=== PATIENT | female | born 1950 | race Caucasian/White ===

== ENCOUNTER 2020-02-08 16:28 | Outpatient (REF) | payer OTHER, SELFPAY | END 2020-02-08 16:29 | disposition home or self-care (01) | LOC: HO.LAB 16:28 | PROVIDERS: PCP Internal Medicine; Visit Provider Internal Medicine | DX: Z20.828 Contact with and (suspected) exposure to other viral communicable diseases (principal) | CPT/HCPCS: C9803; U0003 ==

== ENCOUNTER 2021-08-01 10:03 | Outpatient (REF) | payer OTHER, SELFPAY | END 2021-08-01 10:04 | disposition home or self-care (01) | LOC: HO.LAB 10:03 | PROVIDERS: PCP Internal Medicine; Visit Provider Hospitalist | DX: J44.9 Chronic obstructive pulmonary disease, unspecified (principal); J30.9 Allergic rhinitis, unspecified; R91.8 Other nonspecific abnormal finding of lung field; R05.9 Cough, unspecified; Z87.891 Personal history of nicotine dependence; Z01.82 Encounter for allergy testing | CPT/HCPCS: 36415; 82785; 86003 ==

== ENCOUNTER 2024-09-05 10:24 | Outpatient (AMB) | payer MEDICARE, OTHER, SELFPAY ==
[2024-09-05 10:27] VITALS: BP 109/62; PULSE 57; O2SAT 95; BMI 23.6
--- NOTE | 2024-09-05 10:27 | MHC.OFFVIS ---
Vital Signs 09/05/24 10:27 Height 5 ft 2.5 in Weight 131 lb BMI 23.6 BP 109/62 Blood Pressure Location Rt brachial Position Sitting Pulse 57 Pulse Source Pulse Oximeter Pulse Oximetry (%) 95 Oxygen Delivery Method Room Air Intake Visit Reasons: copd Allergies Penicillins Allergy (Severe, Verified 08/01/21 10:27) Swelling nitrous oxide Adverse Reaction (Severe, Verified 09/05/24 10:33) Nausea HPI Comments Details: The patient is a 74-year-old woman with a known history of COPD and pulmonary nodules. Apparently she did undergo pulmonary function studies back in 2018 demonstrating mild obstructive ventilatory defect consistent mild COPD. Patient does have a cough tends to have a chronic cough from smoking. Denies any significant shortness of breath or limitations from a respiratory status. She did undergo CT scan of the chest back in May 2021 which we personally reviewed demonstrating some mild emphysema in addition to evidence of chronic bronchitis. She did have multiple pulmonary nodules some which were new. The nodule still are subcentimeter in size. She does have some calcified nodules as well. At this point the patient is not requiring any respiratory therapy. She may benefit from a short-acting beta agonist as needed. But, the patient would like to hold off at this time. She is currently scheduled to undergo a repeat CT scan in May 2022. in addition to that will go ahead and plan to repeat her pulmonary function studies and a follow-up in the fall. 09/05/2024 the patient is here for a new patient evaluation. She was last seen about 3 years ago. Now she is being reestablished. The patient is a 74-year-old lady with underlying COPD chronic bronchitis. Seems like her symptoms are getting worse. 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 A seems to be increasing in size. It could be also affecting her respiratory capacity. The patient has been noticing increasing chest congestion. Moderate severity. In addition to shortness of breath even with minimal activity. She does have a rescue inhaler she does not feel like she is using it right and she does not feel like it is helping. On exam she does have some rhonchi. In addition to a prolonged expiratory phase. She definitely needs a maintenance inhaler at this time. We did go for brief walking oximetry the patient did desaturate down to about 92%. Explained to the patient she does not qualify for oxygen but indeed her oxygen is dropping we need to further investigate that. I did review her chest x-ray that she had in June 2024 done at [facility]. It appears that her lungs are well expanded although she has a very large heart specially the right side consistent with a massively large right atrium. She is following up in [place] with a cardiac specialists there. Will go ahead and started on Wixela. We did teach how to use the inhaler. I also provide her with spacer in order for her to use the rescue inhaler. She is still smoking pot and she needs to quit that altogether because of her underlying lung disease. The patient also had a CT scan of the chest back in 2022 done at [facility] demonstrating a 3 mm pulmonary nodules that will need follow-up at this time. Therefore she undergo PFTs and a CT scan and follow-up in 3 months. In the meantime she will start her respiratory medications. In a nasal therapy. [facility] Medical History (Updated 09/05/24 @ 20:39 by Eddy Caldwell MD) Allergic rhinitis Pulmonary nodules Cough COPD (chronic obstructive pulmonary disease) Social History Patient Tobacco Use Status: Former Tobacco user Tobacco use type: Cigarette Years Smoked: 18 years Review of Systems Const Denies fatigue and Denies fever(s) Eyes Denies change in vision ENT Denies change in voice Card Denies chest pain and Reports dyspnea on exertion Resp Reports chest congestion, Reports cough, Reports dyspnea on exertion and Reports wheezing GI Reports no additional complaints Musc Reports no additional complaints Skin/Breast Denies rash Neuro Reports no additional complaints Endo Denies fatigue Aller/Immun Reports wheezing Physical Exam Vital Signs: Last Vital Signs Pulse 57 09/05/24 10:27 BP 109/62 09/05/24 10:27 Pulse Ox 95 09/05/24 10:27 Oxygen Delivery Method Room Air 09/05/24 10:27 BMI result Body Mass Index 23.6 Const General: alert Neck Neck: Yes normal visual inspection, Yes full ROM and Yes no lymphadenopathy Chest Chest palpation & inspection: normal inspection of the chest Resp Effort & Inspection: normal respiratory effort and prolonged expiratory phase Auscultation: rhonchi and diminished lung sounds Cardio Rate: regular rate Rhythm: regular rhythm Heart sounds: S1 normal heart sound present and S2 normal heart sound present GI Palpation (GI): Soft to palpation and nontender Auscultation: normal bowel sounds Skin General skin exam: rashes and/or lesions noted Assessment & Plan Assessment & Plan (1) Pulmonary nodules: Code(s): R91.8 - Other nonspecific abnormal finding of lung field Category: Medical (2) COPD (chronic obstructive pulmonary disease): Code(s): J44.9 - Chronic obstructive pulmonary disease, unspecified Category: Medical Qualifiers: COPD type: chronic bronchitis Chronic bronchitis type: mixed simple and mucopurulent Qualified Code(s): J41.8 - Mixed simple and mucopurulent chronic bronchitis (3) Cough: Code(s): R05.9 - Cough, unspecified Category: Medical Qualifiers: Cough type: chronic Qualified Code(s): R05.3 - Chronic cough Plan RASHAD as needed with a spacer start Wixela daily Fluticasone nasal spray CT chest PFTs F/U 3-4 months the Orders: Orders CT chest wo IV con Today R91.8 - Other nonspecific abnormal finding of lung field PFT pulmonary function test Today R91.8 - Other nonspecific abnormal finding of lung field Medications: New fluticasone propion-salmeterol 250-50 mcg/dose (Wixela Inhub) 1 inh inhalation Q12H 60 ea 11RF 30 days fluticasone propionate 50 mcg/actuation 2 sprays intranasal DAILY 15.8 mL 11RF 30 days J31.0 - Chronic rhinitis Coding Level of Care Code New Pt Level 4 (34371) Diagnoses Pulmonary nodules R91.8 Mixed simple and mucopurulent chronic bronchitis J41.8 COPD type: chronic bronchitis Chronic bronchitis type: mixed simple and mucopurulent Chronic cough R05.3 Cough type: chronic Time Spent (min) 35
--- OUTSIDE RECORDS SUMMARY | 2024-09-05 11:32 | XMS_ITS | Clinical Summary ---
Author Organization [facility] Address [address] [place] [address] Care Team Providers Care Coiler Operator Name Role Phone John Carr MD Primary Care Provider [phone] Allergies Active Allergy Reactions Criticality Noted Date Comments Penicillins 12/01/2016 Medications Medication Sig Dispensed Refills Start Date End Date Status glipiZIDE (GLUCOTROL XL) ER 24 hr tablet 10 mg Take 10 mg by mouth daily. 0 Active metFORMIN (GLUCOPHAGE) tablet 500 mg Take 500 mg by mouth 2 (two) times a day with meals. 0 Active fenofibrate (TRIGLIDE) 160 MG tablet Take 160 mg by mouth daily. 0 Active simvastatin (ZOCOR) tablet 40 mg Take 40 mg by mouth every night at bedtime. 0 Active methylphenidate (CONCERTA) 54 MG CR tablet Take 54 mg by mouth every morning. 0 Active buPROPion (WELLBUTRIN XL) 150 MG 24 hr tablet Take 150 mg by mouth daily. 0 Active HYDROXYCHLOROQUINE SULFATE PO Take by mouth. 0 Active lisinopril (PRINIVIL,ZESTRIL) tablet 10 mg Take 10 mg by mouth daily. 0 Active omeprazole (PRILOSEC) 20 MG capsule Take 20 mg by mouth daily. 0 Active Magnesium Oxide 400 (241.3 MG) MG TABS tablet Take 400 mg by mouth 2 (two) times a day. 0 Active cholecalciferol (VITAMIN D3) 1000 UNITS tablet Take 1,000 Units by mouth daily. 0 Active insulin glargine (LANTUS) injection 100 units/mL Inject 14 Units under the skin every night at bedtime. 0 Active ondansetron (ZOFRAN-ODT) 4 MG disintegrating tablet Take by mouth. 0 Active atenolol (TENORMIN) tablet 50 mg Take 50 mg by mouth 2 (two) times a day. 0 Active CALCIUM PO Take by mouth. 0 Active vitamin B-12 (CYANOCOBALAMIN) 100 MCG tablet Take 50 mcg by mouth daily. 0 Active amLODIPine (NORVASC) tablet 5 mg Take 5 mg by mouth daily. 0 Active apixaban (ELIQUIS) 5 MG TABS tablet Take 5 mg by mouth every 12 (twelve) hours. 0 Active Active Problems Problem Noted Date Diagnosed Date Essential thrombocytosis 07/29/2022 History of cellulitis 07/29/2022 Family History Medical History Relation Name Comments Stroke Brother Hypertension Father Stroke Father Diabetes Mother Heart disease Mother Hypertension Mother Relation Name Status Comments Brother Father Mother Social History Tobacco Use Types Packs/Day Years Used Date Smoking Tobacco: Former Smokeless Tobacco: Never Alcohol Use Standard Drinks/Week Comments No 0 (1 standard drink = 0.6 oz pur e alcohol) Sex and Gender Information Value Date Recorded Sex Assigned at Not on file Gender Identity Not on file Sexual Orientation Not on file Job Start Date Occupation Industry Not on file Not on file Not on file Last Filed Vital Signs Vital Sign Reading Time Taken Comments Blood Pressure 142/68 07/29/2022 3:15 PM EDT Pulse 58 07/29/2022 3:15 PM EDT Temperature 37.1 C (98.7 F) 07/29/2022 3:15 PM EDT Respiratory Rate - - Oxygen Saturation 100% 07/29/2022 3:15 PM EDT Inhaled Oxygen Concentration - - Weight 61.1 kg (134 lb 9.6 oz) 07/29/2022 3:15 P M EDT Height 156.8 cm (5' 1.75 ) 07/29/2022 3:15 PM ED T Body Mass Index 24.82 07/29/2022 3:15 PM EDT Plan of Treatment Health Maintenance Due Date Last Done Comments Hepatitis C Screening 1950 COVID-19 Vaccine (#1) 1957 Pneumococcal Vaccine (1 of 2 - PCV) 1958 Depression Screening 1964 Preventative Health Evaluation 1970 DTap / Tdap / Td (1 - Tdap) 08/03/1971 Shingrix-Zoster Vaccine (1 of 2) 08/03/1971 Colon Cancer Screening (Colonoscopy) 1997 Breast Cancer Screening (Mammogram) 2002 Fall Risk Assessment 2017 Osteoporosis Screening (DEXA Scan) 2017 Influenza Vaccine (Season Ended) 2024 12/09/19 16 RSV Adult > 60+ Yrs or Pregn ant (1 - 1-dose 75+ series) 08/03/2027 Hepatitis B Vaccines Aged Out No long er eligible based on patient's age to complete this topic RSV Ped < 20 months Aged Out No longe r eligible based on patient's age to complete this topic Care Teams Coiler Operator Relationship Specialty Start Date End Date John Carr MD PCP - General Internal Medicine 11/17/16
--- OUTSIDE RECORDS SUMMARY | 2024-09-05 11:32 | XMS_ITS | Patient Health Record ---
Author Organization [facility] Address [address] [facility] [address] [place] [address] Support Name Relationship Address Phone Disha Ibarra Guarantor Unknown [phone] Allergies Allergen (clinical drug ingredient) Drug/Non Drug Allergy documented on EMR Reaction Allergy Type Onset Date Status Penicillin Unknown Drug Allergy Active Reason For Referral No Information Medications Medication SIG (Take, Route, Frequency, Duration) Notes Start Date End Date Status Methylphenidate HCl ER 54 MG 1 tablet in the morning Orally Once a day Active Hydroxychloroquine Sulfate 2 00 MG as directed Orally Active Xarelto 20 MG 1 tablet Orally Once a day Active Losartan Potassium 100 MG 1 tablet Orall y Once a day Active metFORMIN HCl 500 MG 1 tablet with a ariane l Orally twice a day Active Atenolol 50 MG 1 tablet Orally Once a day Active amLODIPine Besylate 5 MG 1 tablet Orally Once a day Active Fenofibrate 160 MG 1 tablet Orally Once a day Active Simvastatin 40 MG 1 tablet in the evening Orally Once a day Active Vitamin B12 Active Vitamin D Active oxyCODONE HCl 5 MG 1 tablet as needed Orally bid; Duration: 7 days 05/09/2021 Active Calcium Active tiZANidine HCl 4 MG 1 tablet as needed Orally Three times a day; Duration: 7 days 05/09/2021 Active Magnesium Active Ondansetron HCl 8 MG 1 tablet as needed Orally Once a day Active buPROPion HCl ER (XL) 150 MG 1 tablet in the morning Orally Once a day Active Plan Of Treatment No Information Medical (General) History Medical History History ICD Code CHD on Xarelto DMII Hypertension
--- OUTSIDE RECORDS SUMMARY | 2024-09-05 11:32 | XMS_ITS | Clinical Summary ---
Author Organization [address] [place] [address] [place] [phone] Phone Care Team Providers Care Medical Unit Secretary Name Role Phone John Carr MD Primary Care Provider [phone] Allergies Active Allergy Reactions Criticality Noted Date Comments Nitrous Oxide 04/30/2024 Penicillins 04/30/2024 Medications CYANOCOBALAMIN, VITAMIN B-12, ORAL Take by mouth daily. Active buPROPion XL (WELLBUTRIN XL) 150 mg 24 hr tablet TAKE 1 TABLET ONCE DAILY INTHE MORNING Active OneTouch Ultra Test test strip Test glucose once daily 09/21/19 24 Active atenoloL (TENORMIN) 50 mg tablet Take 1 tablet (50 mg total) by mouth 2 (two) times a day. Active albuterol HFA (PROAIR HFA ; PROVENTIL HFA ; VENTOLIN HFA) 90 mcg/actuation inhaler 1 puff every 4 (four) hours if needed. 01/27/20 24 Active cholecalciferol (VITAMIN D-3) 25 mcg (1,000 unit) tablet Take 1 tablet (1,000 Units total) by mouth daily. Active fenofibrate (LOFIBRA) 160 mg tablet Take 1 tablet (160 mg total) by mouth 1 (one) time each day. Active hydroxychloroqu ine (PLAQUENIL) 200 mg tablet 2 tablets (400 mg total) 1 (one) time each day. Active losartan (COZAAR) 100 mg tablet Take 0.5 tablets (50 mg total) by mouth 1 (one) time each day. Active metFORMIN XR (GLUCOPHAGE-XR) 500 mg 24 hr tablet Take 1 tablet (500 mg total) by mouth 2 times daily. 03/29/19 25 Active methylphenidate 54 mg 24 hr tablet Take 1 tablet (54 mg total) by mouth 1 (one) time each day. Active Xarelto 20 mg tablet Take 1 tablet (20 mg total) by mouth 1 (one) time each day. Active simvastatin (ZOCOR) 40 mg tablet TAKE 1 TABLET ONCE DAILY ATBEDTIME Active multivit-min/ir on/FA/vit K/lut (CENTRUM SILVER WOMEN ORAL) Take 1 tablet by mouth 1 (one) time each day. Active ergocalciferol (Vitamin D2) 1,250 mcg (50,000 unit) capsule Vitamin D Active cyanocobalamin (Vitamin B-12) 1,000 mcg tablet Vitamin B12 Active traZODone (DESYREL) 50 mg tablet if needed 05/11/19 Active MAGNESIUM ORAL Take by mouth. Active omeprazole (PriLOSEC) [address] capsuleIndicati ons:Gastroesoph ageal reflux disease without esophagitis Take 1 capsule (40 mg total) by mouth 1 (one) time each day. 90 each 07/25/19 25 026 Active ondansetron (ZOFRAN) 8 mg tabletIndicatio ns:Gastroparesi s Take 1 tablet (8 mg total) by mouth 1 (one) time each day. 90 tablet 07/25/19 25 026 Active amLODIPine (NORVASC) 5 mg tablet Take 1.5 tabs daily 11 each 08/29/19 25 Active amLODIPine (NORVASC) 5 mg tablet Take 1 tablet (5 mg total) by mouth 1 (one) time each day. In addition to 2.5 mg daily for total (7.5 mg ) 90 each 08/29/19 25 Active amLODIPine (NORVASC) 2.5 mg tablet Take 1 tablet (2.5 mg total) by mouth 1 (one) time each day. In addition to 5mg for a total of (7.5 mg) 90 each 08/29/19 25 026 Active amLODIPine (NORVASC) 5 mg tablet Take 1.5 tablets (7.5 mg total) by mouth 1 (one) time each day. 135 each 1 06/27/19 25 025 Discontinued(Re order) amLODIPine (NORVASC) 5 mg tablet Take 1.5 tablets (7.5 mg total) by mouth 1 (one) time each day. 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 She has underlying pulmonary disease and will continue to follow-up with her psychiatry resident for reevaluation. She also admits that over the past several years she has become quite inactive; deconditioning may be playing a role as well and she was encouraged to increase her activity as tolerated to see if improving her endurance improves symptoms. She has several risk factors for coronary artery disease including advanced age, hypertension, hyperlipidemia, diabetes, and previous smoking history. As such, we must consider that this may be her anginal equivalent; we discussed a nuclear stress test for further evaluation of possible underlying ischemia and she is amenable to this. She does not think that she will be able to ambulate on a treadmill at and as such this will have to be a pharmacological study. Of note, when I inquired whether she had had a history of seizures, she reports that she had had 2 in the past; upon elaborating on this further, she notes that they are seizures from her heart, not her brain. She describes the events that occurred when her atrial flutter was initially diagnosed where she felt as though her body with spasm out when her heart rate was going very fast. The description of these events is not consistent with neurological seizure; she has no loss of consciousness and remembers the entire event. She does not have any apparent history of seizure disorder. We will also update an echocardiogram for reevaluation of her cardiac structure and function given her history of Ebstein's anomaly as this may be contributory as well. Orders: Nuclear stress test with myocardial perfusion; Future Transthoracic echocardiogram (TTE) complete with PRN contrast, bubble, strain, and 3D order panel; Future Dizziness 06/06/2024 Assessment & Plan (06/06/2024 4:39 PM EDT): The patient reports very brief episodes of dizziness with sensation of presyncope that have been ongoing for many years and occur quite infrequently. She reports that she is unable to check her blood pressure during these time frames as it passes so quickly; she does not feel it is due to her blood sugar as it resolves before she is able to eat anything. The cause for this remains unclear, but she declines further testing at this time; should they become more frequent or prominent, she will return to care for further evaluation. Secondary hypercoagulable state ([facility] V24) Assessment & Plan (06/06/2024 4:39 PM EDT): First degree atrioventricular block 09/04/2022 Overview (06/06/2024): First degree atrioventricular block. Service date: 10/03/2014. Author: Marissa Smith MD. Supraventricular tachycardia ([facility] V24) 09/04 Overview (06/06/2024): Supraventricular tachycardia. Service date: 01/16/2015. Author: Lisa Floyd MD. Summary: as above. Anxiety 09/04/2022 Hypertension 09/02/2022 Assessment & Plan (06/06/2024 4:39 PM EDT): Blood pressure is favorable on current medical therapies; continue atenolol, amlodipine, and losartan. She believes that she had blood work done at Dr. Carr's office recently; we have reached out to his office and attempt to obtain most recent metabolic panel and CBC. 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 I have requested that she reach out to Dr. Hightower from the adult congenital heart disease clinic with whom she typically follows for this to see when she is due for her next follow-up and she is unclear on this and she is agreeable to doing so. Her shortness of breath may be related to underlying COPD and deconditioning as she reports that she is quite inactive on a regular basis; she will also follow-up with her psychiatry resident for reevaluation of her COPD. We discussed worrisome signs or symptoms for which she should return to care or seek urgent medical attention and she verbalizes understanding of this. We will continue to readdress this once her echo has been reviewed. Orders: Transthoracic echocardiogram (TTE) complete with PRN contrast, bubble, strain, and 3D order panel; Future Paroxysmal atrial flutter ([facility]/HCC V24, CMS/HCC V28) 06/22/2022 Overview (06/06/2024): Last Assessment & Plan: The patient is now status post a ablation in 2014; EKG today revealing sinus bradycardia with first-degree AV block which has been present previously as well. She denies any palpitations or symptoms reminiscent of her atrial flutter. She did not decrease her atenolol after her last visit as was directed by Dr. Daniel, but is willing to do so now; we will have her trial atenolol 50 mg once daily and she will call us for any recurrence of palpitations or other symptoms suspicious for atrial flutter prior to her next visit. She remains anticoagulated on Xarelto 20 mg daily; we discussed the risks and benefits of continuing with anticoagulation for cardioembolic prophylaxis and she wishes to continue with the current plan. She is aware to seek emergent medical attention for any uncontrolled bleeding, signs or symptoms of GI or other internal bleeding, or for any head injury. Assessment & Plan (06/06/2024 4:39 PM EDT): The patient is now status post a ablation in 2014; EKG revealed sinus bradycardia with sinus arrhythmia and first-degree AV block, which has been present previously as well. Her heart rate is quite low in the 50s today but this has been her baseline with typical readings in the 50s to 60s. It was previously requested by both myself and Dr. Daniel that she decrease her atenolol to 50 mg once daily, but she continues to take it twice daily; we did revisit this today and she is aware of the recommendations. She denies any palpitations or other symptoms suspicious for atrial flutter and is aware to call us should these occur. She remains anticoagulated on Xarelto 20 mg daily; we discussed the risks and benefits of continuing with anticoagulation for cardioembolic prophylaxis and she wishes to continue with the current plan. She is aware to seek urgent medical attention for any uncontrolled bleeding, signs or symptoms of GI or other internal bleeding, or for any head injury. Patent foramen ovale 06/22/2022 Overview (06/06/2024): Patent foramen ovale. Service date: 01/16/2015. Author: Lisa Floyd MD. Nonrheumatic tricuspid valve regurgitation 06/04 Overview (06/06/2024): Last Assessment & Plan: Mild concentric TR noted on most recent echocardiogram 06/10/2023; the patient is previously been diagnosed with Ebstein's abnormality though the echo report from [facility] in a 2022 states that the morphology of her tricuspid valve is not typical for Ebstein's anomaly. She will continue to follow with the adult congenital heart disease clinic. We will continue to monitor this with serial imaging. Assessment & Plan (06/06/2024 4:39 PM EDT): Orders: ECG 12 lead Transthoracic echocardiogram (TTE) complete with PRN contrast, bubble, strain, and 3D order panel; Future Right atrial enlargement 06/04/2021 Overview (06/06/2024): Last Assessment & Plan: She offers no new or concerning symptoms; she has been followed by the adult congenital heart disease clinic with her last visit with Dr. iHghtower being approximately 1 year ago. Her most recent echocardiogram completed 06/10/2023 shows no new findings. She is aware of signs or symptoms for which she should return to care or seek emergent medical attention. We will continue to follow this. Assessment & Plan (06/06/2024 4:39 PM EDT): Orders: Transthoracic echocardiogram (TTE) complete with PRN contrast, bubble, strain, and 3D order panel; Future Hyperlipidemia 07/05/2016 Assessment & Plan (06/06/2024 4:39 PM EDT): No recent lipid panel on file and this is typically monitored by her PCPs office; we will attempt to obtain this from the PCPs office and readdress as needed. LDL goal for this patient who has a history of diabetes is less than 70; should she be found to have coronary artery disease, goal would be less than 55. Continue simvastatin with recommendation for PCP to readdress dosing as indicated. Orders: Nuclear stress test with myocardial perfusion; Future NSVT (nonsustained ventricul ar tachycardia) (CMS/HCC V24, CMS/HCC V28) 08/08/2015 Overview (06/06/2024): 23 beat run noted on Cardionet monitor in March 2015 in setting of congenital HD with normal perfusion on MIBI 11/23/14. Encounters Date Type Department Care Team Description 08/28/2024 Telephone [facility] [address] [place] [address] Jorge Daniel MD 08/28/2024 Telephone [facility] - [address] [place] [address] Jorge Daniel MD Med Refill 08/25/2024 Telephone [facility] - [address] [place] [address] Laure Rodriguez, COURTNEY Results 08/21/2024 1:00 PM EDT Ancillary Procedure [facility] [address] [place] [address] Nonrheumatic tricuspid valve regurgitation; Ebstein's anomaly; LINO (dyspnea on exertion); Right atrial enlargement 07/24/2024 10:10 AM EDT Office Visit Gastroenterology - [address] [facility] [address] [place] [phone] Carol Castle PA Gastroparesis (Primary Dx); Gastroesophageal reflux disease without esophagitis 06/28/2024 Telephone [facility] - [address] [place] [address] Jorge Daniel MD Possible caffiene 06/28/2024 Telephone Gastroenterology - [address] [facility] [address] [place] [address] Carol Castle PA Med Refill 06/26/2024 8:30 AM EDT Ancillary Procedure [facility] - [address] [place] [address] LINO (dyspnea on exertion); Hyperlipidemia, unspecified hyperlipidemia type 06/21/2024 Telephone [facility] - [address] [place] [address] Laure Rodriguez, BANKING MANAGER Results 06/08/[address] [facility] Cardiology [facility] - [address] [place] [address] Jorge Daniel MD return call 06/06/2024 2:40 PM EDT Office Visit [facility] Cardiology [facility] - [address] [place] [phone] Laure Rodriguez NP Ebstein's anomaly (Primary Dx); Right atrial enlargement; Nonrheumatic tricuspid valve regurgitation; Primary hypertension; Paroxysmal atrial flutter ([facility] V24, [facility] V28); Secondary hypercoagulable state ([facility] V24); LINO (dyspnea on exertion); Hyperlipidemia, unspecified hyperlipidemia type; Dizziness from Last 3 Months Surgical History Surgery Date Site/Laterality Comments CARPAL TUNNEL RELEASE PROCEDURE: MO NEUROPLASTY &/TRANSPOS MEDIAN NRV CARPAL TUNNE TUBAL LIGATION PROCEDURE: HISTORICAL TUBAL LIGATION APPENDECTOMY PROCEDURE: MO APPENDECTOMY BREAST LUMPECTOMY 02/25/2011 PROCEDURE: HISTORICAL BREAST LUMPECTOMY CATARACT EXTRACTION Left COLONOSCOPY 10/12/2022 recall 5 years Medical History Medical History Date Comments Undiagnosed cardiac murmurs DX:U ndiagnosed cardiac murmurs Adjustment disorder with dep ressed mood DX:Adjustment disorder with depressed mood Unspecified asthma(493.90) DX:Un specified asthma(493.90) Type II or unspecified type diabetes mellitus with unspecified complication, not stated as uncontrolled DX:Type II or unspecified ty pe diabetes mellitus with unspecified complication, not stated as uncontrolled Anxiety state, unspecified DX:An xiety state, unspecified Heart disease, unspecified DX:He art disease, unspecified Venereal disease, unspecified DX :Venereal disease, unspecified Chronic gastric ulcer withou t mention of hemorrhage or perforation, with obstruction DX:Chronic gastric ulcer wit hout mention of hemorrhage or perforation, with obstruction Other and unspecified noninf ectious gastroenteritis and colitis(558.9) DX:Other and unspec ified noninfectious gastroenteritis and colitis(558.9) Other specified personal his tory presenting hazards to health(V15.89) DX:Other specifie d personal history presenting hazards to health(V15.89) Breast cancer ([facility] V24, [facility] V28) 02/2011 DX:Breast cancer (HCC); COMM ENT: right Hypertension 09/02/2022 Family History Medical History Relation Name Comments Heart attack Brother 1 CABG Brother 2 Diabetes Brother 3 Diabetes Brother 4 Hypertension Brother 5 Diabetes Mother Heart attack Mother Diabetes Paternal Grandmother Relation Name Status Comments Brother 1 Brother 2 Brother 3 Brother 4 Brother 5 Brother 6 (Age 67) Brother 7 Alive Brother 8 Alive Brother 9 Alive Daughter Valeria Alive Father Maternal Grandfather Maternal Grandmother Mother Paternal Grandfather Paternal Grandmother Social History Tobacco Use Types Packs/Day Years Used Date Smoking Tobacco: Former Cigarettes Q uit: 07/20/2011 Smokeless Tobacco: Never Alcohol Use Standard Drinks/Week Comments Yes 0 (1 standard drink = 0.6 oz pur e alcohol) rare Comments Unknown Sex and Gender Information Value Date Recorded Sex Assigned at Not on file Legal Sex Female 3:44 PM EST Gender Identity Not on file Sexual Orientation Not on file Obstetrics History Last Filed Vital Signs Vital Sign Reading Time Taken Comments Blood Pressure 161/83 08/21/2024 3:01 PM EDT Pulse 52 06/06/2024 2:30 PM EDT Temperature 36.4 C (97.6 F) 04/30/2024 2:49 PM EST Respiratory Rate - - Oxygen Saturation 97% 06/06/2024 2:30 PM EDT Inhaled Oxygen Concentration - - Weight 61.2 kg (135 lb) 08/21/2024 3:01 PM EDT Height 157.5 cm (5' 2 ) 08/21/2024 3:01 PM EDT Body Mass Index 24.69 08/21/2024 3:01 PM EDT Plan of Treatment Health Maintenance Due Date Last Done Comments Breast Cancer Screening 1950 Diabetes: Annual GFR (Glomerular Filtration Rate) 1950 COVID-19 Vaccine (#1) 1957 Diabetes: Annual Foot Exam 1962 Diabetes: Annual Retina Eye Exam 1962 DTaP,Tdap,and Td Vaccines (1 - Tdap) 08/03/1971 Pneumococcal Vaccine: 50+ Years (1 of 2 - PCV) 08/03/1971 Cervical Cancer Screening: HPV 1973 RSV Immunization Adult Patients (1 - Risk 60-74 years 1-dose series) 2012 Zoster Vaccines (2 of 2) 02/07/2020 12/13/2019 Cholesterol Screening (Lipid Panel) 02/14/2022 Colorectal Cancer Screening: Colonoscopy 02/14/2022 Depression Screening 02/14/2022 Falls Risk Assessment 02/14/2022 Hepatitis C Screening 02/14/2022 Osteoporosis Screening (Bone Density Screening) 02/14/2022 Social Influencers of Health Screening 02/14/2022 Medicare Annual Wellness Visit 10/08/2023 10/07/2022 Diabetes: Blood Sugar Control Test (HGBA1C) 04/30/2024 Hypertension/CHF/CAD Annual BMP Blood Test 04/30/2024 Diabetes: Annual Urine Albumin-Creatinine Ratio (uACR) 07/19/2025 07/19/2024, 03/15/2024, 03/19/2023 Influenza Vaccine Completed 03/13/2024, , 12/25/2021, Additional history exists HIB Vaccines Aged Out No longer eligi ble based on patient's age to complete this topic HPV Vaccines Aged Out No longer eligi ble based on patient's age to complete this topic Hepatitis A Vaccines Aged Out No long er eligible based on patient's age to complete this topic Hepatitis B Vaccines Aged Out No long er eligible based on patient's age to complete this topic IPV Vaccines Aged Out No longer eligi ble based on patient's age to complete this topic MMR Vaccines Aged Out No longer eligi ble based on patient's age to complete this topic Meningococcal ACWY Vaccine Aged Out N o longer eligible based on patient's age to complete this topic Meningococcal B Vaccine Aged Out No l onger eligible based on patient's age to complete this topic RSV Immunization Patients Under 20 months Aged Out No longer eligible based on patient's age to complete this topic Varicella Vaccines Aged Out No longer eligible based on patient's age to complete this topic Procedures Procedure Name Priority Date/Time Associated Diagnosis Comments TRANSTHORACIC ECHOCARDIOGRAM (TTE) COMPLETE Routine 08/21/2024 1:40 PM EDT Nonrheumatic tricuspid valve regurgitation Ebstein's anomaly LINO (dyspnea on exertion) Right atrial enlargement NM LEXISCAN STRESS TEST W/ MYOCARDIAL PERFUSION Routine 06/26/2024 11:06 AM EDT LINO (dyspnea on exertion) Hyperlipidemia, unspecified hyperlipidemia type ECG 12-LEAD Routine 06/06/2024 2:36 PM EDT Nonrheumatic tricuspid valve regurgitation from Last 3 Months Results * (ABNORMAL) TRANSTHORACIC ECHOCARDIOGRAM (TTE) COMPLETE (08/21/2024 1:40 PM EDT) Left Atrium Minor [place] 6.1 cm CV PACS Left Atrium Major [place] 5.9 cm CV PACS LA Area Sys (A2C) 22 cm2 CV PACS LA Area Sys (A4C) 22 cm2 CV PACS LA Volume (BP) 68 mL CV PACS LA Size 4.4 cm CV PACS RA Area 55.1 cm2 CV PACS RA 2D Volume 268 mL CV PACS AV Mean Gradient 3 mmHg CV PACS Ao VTI 27.3 cm CV PACS AV Peak [place] 1.2 m/s CV PACS AV Peak Gradient 6 mmHg CV PACS AV Area Continuity Equation 2.5 cm2 CV PACS AV Area Peak Velocity 2.6 cm2 CV PACS Aortic Sinus Valsalva 3.2 cm CV PACS Ascending Aorta 3.1 cm CV PACS IVC Proximal 1.0 cm CV PACS IVSD 1.2(A) 0.6 - 0.9 cm CV PACS LVIDD 4.0 3.8 - 5.2 cm CV PACS LVIDS 2.7 2.2 - 3.5 cm CV PACS LVOT Diameter 2.1 cm CV PACS LVOT Mean [place] 0.6 m/s CV PACS LVOT Mean Grad 2 mmHg CV PACS LVOT Peak VTI 19.5 cm CV PACS LVOT Peak [place] 0.9 m/s CV PACS LVOT Peak Gradient 3 mmHg CV PACS LVPWD 1.2(A) 0.6 - 0.9 cm CV PACS MV E' Tissue Velocity Lateral 8 cm/s CV PACS MV E' Tissue Velocity Septal 6 cm/s CV PACS LVOT Area 3.5 cm2 CV PACS LVOT Stroke Volume 67 mL CV PACS MV Deceleration [place] 2.3 m/s2 CV PACS E Wave Deceleration Time 238 119 - 242 ms CV PACS MV PHT 70 ms CV PACS MV Peak A [place] Angel 0.71 m/s CV PACS MV Peak E [place] Angel 0.57 m/s CV PACS MV Mean Gradient 1 mmHg CV PACS MV Mean Gradient 1 mmHg CV PACS MV Mean Gradient 1 mmHg CV PACS MV Mean Gradient 1 mmHg CV PACS MV VTI 25.1 cm CV PACS Mitral Valve Max Velocity 0.8 m/s CV PACS MV Peak Gradient 3 mmHg CV PACS MV Area PHT 3.1 cm2 CV PACS MV Area Continuity Equation 2.7 cm2 CV PACS PV Acceleration Time 144 ms CV PACS PV Mean Gradient 1 mmHg CV PACS PV VTI 11.3 cm CV PACS PV Peak Velocity 0.6 m/s CV PACS PV Peak Gradient 1 mmHg CV PACS RV Diastolic Basal Dimension 5.5(A) 2.5 - 4.1 cm CV PACS RV S' 9 cm/s CV PACS TAPSE 25 mm CV PACS TR Peak Velocity 2.79 m/s CV PACS TR Peak Gradient 31 mmHg CV PACS E/E' Ratio Septal 10 CV PACS E/E' Ratio Averaged 8 CV PACS Relative Wall Thickness ratio 0.60 CV PACS LVOT:AV VTI Index 0.71 CV PACS FS 33 % CV PACS LV Mass 2D 165 g CV PACS MV VTI:LVOT VTI ratio 1.3 CV PACS LVOT flow 208 mL/s CV PACS AV Velocity Ratio 0.75 CV PACS E/A Ratio 0.8 CV PACS E/E' Ratio Lateral 7 CV PACS BSA 1.64 m2 CV PACS LA Volume Index (BP) 42 mL/m2 CV PACS LVIDD Index 2.47 cm/m2 CV PACS LVIDS Index 1.67 cm/m2 CV PACS LV Mass Index 2D 102(A) 44 - 88 g/m2 CV PACS LVOT Stroke Index 41 mL/m2 CV PACS LA Dimension Index 2D 2.7 cm/m2 CV PACS RA 2D Volume Index 165(A) 15 - 27 mL/m2 CV PACS YAA Index (VTI) 1.53 cm2/m2 CV PACS YAA Index (Pk Miguel Angel) 1.60 cm2/m2 CV PACS Ascending Aorta Index 1.91 cm/m2 CV PACS Right Ventricular Peak Systolic Pressure 34 mmHg CV PACS Est. RA Pressure 3 mmHg CV PACS Anatomical Region Laterality Modality Ultrasound Narrative 08/24/2024 12:11 PM EDT Normal LV size and function. Normal left atrium The right atrium is massively dilated probably due to Ebstein's anomaly with apical displacement of the tricuspid leaflets. The right ventricle is small and seems to contract normally. The IVC is small consistent with a normal CVP. There is moderate TR with normal estimated RV systolic pressures. No change from June 10, 2023. Left Ventricle Left ventricle cavity size is normal. There is mild concentric hypertrophy. Systolic function is normal with an ejection fraction of 60-65%. There are no regional LV wall motion abnormalities. Right Ventricle Right ventricle cavity is small. Systolic function is normal. Left Atrium Left atrium cavity is moderately dilated. Right Atrium Right atrium cavity is massively dilated.. This is likely due to apically displaced tricuspid leaflets and Ebstein's anomaly. IVC/SVC Inferior vena cava structure is normal. RA pressures is estimated to be 3 mmHg (IVC diameter <21 mm and decreases >50% during inspiration). Mitral Valve The leaflets are mildly thickened. There is mild annular calcification. There is trace regurgitation. There is no evidence of mitral valve stenosis. Tricuspid Valve Tricuspid valve appearance is consistent with Ebstein's anomaly. The posterior leaflet in particular is displaced to the apex. There is moderate regurgitation with an eccentric jet. There is no evidence of tricuspid valve stenosis. The right ventricular systolic pressure is normal. Aortic Valve Number of aortic valve cusps cannot be determined. The leaflets are mildly thickened. There is no regurgitation or stenosis. Pulmonic Valve The pulmonic valve was not well visualized. There is no regurgitation or stenosis. Ascending Aorta The aorta appears normal in size. Pericardium Pericardium appears normal. There is no pericardial effusion. Study Details Overall the study quality was adequate. us Laure Rodriguez NP CV ECHO PROCEDURES Fi nal Result * NM LEXISCAN STRESS TEST W/ MYOCARDIAL PERFUSION (06/26/2024 11:06 AM EDT) Exercise/injec tion duration (min) 0 CV PACS STRESS Exercise/injec tion duration (sec) 43 CV PACS STRESS Peak SBP 170 mmHg CV PACS STRESS Peak DBP 80 mmHg CV PACS STRESS Peak HR 81 bpm CV PACS STRESS Baseline HR 54 bpm CV PACS STRESS Baseline SBP 170 mmHg CV PACS STRESS Baseline DBP 80 mmHg CV PACS STRESS Estimated workload 1.0 METS CV PACS STRESS Percent HR 54 % CV PACS STRESS Rate Pressure Product 13,770.0 mmHg*bpm CV PACS STRESS BSA 1.63 m2 CV PACS STRESS Target HR 127 bpm CV PACS STRESS TID 0.98 CV PACS STRESS Nuc Stress EF 71 % CV PAC S STRESS Nuc Rest EF 74 % CV PACS STRESS Anatomical Region Laterality Modality Nuclear Medicine 06/26/2024 9:28 AM EDT 06/26/2024 10:08 AM EDT Narrative 06/26/2024 5:23 PM EDT LV perfusion is normal. No evidence of ischemia or infarct by myocardial perfusion imaging after attenuation correction. Gated SPECT imaging shows a normal LVEF calculated be 74%. The LV does not appear enlarged. The TID ratio not significantly elevated. EKG stress portion as documented below. Stress Findings A pharmacological stress test was performed using regadenoson, 0.4 mg IV over 10-15 seconds, followed by radiopharmacological injection 10 seconds post infusion. Total stress time was 0 min and 43 sec. The patient reached the end of the protocol. Reversal medication 50 mg aminophylline IVP given. Blood pressure demonstrated a normal response. Heart rate demonstrated a normal response. The patient reported dizziness and nausea during the stress test that resolved after administration of aminophylline. ECG 73 year old female with reports of dyspnea on exertion. PMH includes HTN, HLD, DM and former smoking. The ECG shows normal sinus rhythm. The ECG axis is normal. Non-specific ST abnormalities noted at baseline. There were no arrhythmias during stress. There is no significant ST abnormalities during stress. There were no arrhythmias during recovery. Nuclear Study Quality Study technique: MPI, SPECT, multi, rest and stress, 1 day. Overall image quality is good. CT attenuation correction was utilized. Increased bowel uptake artifact is present. There was no increased lung uptake of the radiopharmaceutical. No radiopharmaceutical dose was extravasated. The time from injection to rest imaging is 30 mins. The time from injection to stress imaging is 45 mins. Perfusion Defect Conclusion There is no evidence of transient ischemic dilation (TID). Stress Function Comments Stress ejection fraction is 71%. Rest Function Comments Normal regional wall motion and thickening. Resting ejection fraction was 74%. CT Findings CT was performed for attenuation correction purposes only not for diagnosis. 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 Bilateral central breast densities noted though incompletely visualized. Would correlate with prior mammography. Perfusion Comments LV perfusion is normal. No fixed or reversible defects at rest or stress Laure Rodriguez NP CV STRESS PROCEDURES Final Result * ECG 12 lead (06/06/2024 2:36 PM EDT) Ventricular Rate ECG 52 BPM GEMUSE Atrial Rate 52 BPM GEMUSE P-R Interval 226 ms GEMUSE QRS Duration 80 ms GEMUSE Q-T Interval 464 ms GEMUSE QTc 431 ms GEMUSE P Wave [place] 63 degrees GEMUSE R [place] 36 degrees GEMUSE T [place] 34 degrees GEMUSE ECG Interpretation Sinus bradycardia with marked sinus arrhythmia with 1st degree A-V block T wave abnormality, consider anterior ischemia When compared with ECG of 08/20/2023 No significant change was found Confirmed by VAN REYEZ ([id number]) on 06/06/2024 4:03:26 PM GEMUSE 06/06/2024 2:36 PM EDT 06/06/2024 4:03 PM EDT Laure Rodriguez NP ECG ORDERABLES Final Result GEMUSE from Last 3 Months Insurance MEDICARE [facility] Advance Directives Documents on File Type Date Recorded 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 Health Care Decision (hx) 08/17/2014 AD PHAM DIRECTIVE Health Care Decision (hx) 08/17/2014 AD PHAM DIRECTIVE Health Care Decision (hx) 08/17/2014 AD PHAM DIRECTIVE Health Care Decision (hx) 08/17/2014 AD PHAM DIRECTIVE Health Care Decision (hx) 08/17/2014 AD PHAM DIRECTIVE Health Care Decision (hx) 08/17/2014 AD PHAM DIRECTIVE Health Care Decision (hx) 08/17/2014 AD PHAM DIRECTIVE Health Care Decision (hx) 08/17/2014 AD PHAM DIRECTIVE Health Care Decision (hx) 08/17/2014 AD PHAM DIRECTIVE Health Care Decision (hx) 08/17/2014 AD PHAM DIRECTIVE Health Care Decision (hx) 08/17/2014 AD PHAM DIRECTIVE Health Care Decision (hx) 08/17/2014 AD PHAM DIRECTIVE Health Care Decision (hx) 08/17/2014 AD PHAM DIRECTIVE Health Care Decision (hx) 08/17/2014 AD PHAM DIRECTIVE Health Care Decision (hx) 08/17/2014 AD PHAM DIRECTIVE Health Care Decision (hx) 08/17/2014 AD PHAM DIRECTIVE Health Care Decision (hx) 08/17/2014 AD PHAM DIRECTIVE Health Care Decision (hx) 08/17/2014 AD PHAM DIRECTIVE Health Care Decision (hx) 08/14/2014 AD PHAM DIRECTIVE Health Care Decision (hx) 08/14/2014 AD PHAM DIRECTIVE Health Care Decision (hx) 08/14/2014 AD PHAM DIRECTIVE Health Care Decision (hx) 08/14/2014 AD PHAM DIRECTIVE Health Care Decision (hx) 08/14/2014 AD PHAM DIRECTIVE Health Care Decision (hx) 08/14/2014 AD PHAM DIRECTIVE Health Care Decision (hx) 08/14/2014 AD PHAM DIRECTIVE Health Care Decision (hx) 08/14/2014 AD PHAM DIRECTIVE Health Care Decision (hx) 08/14/2014 AD PHAM DIRECTIVE Health Care Decision (hx) 08/14/2014 AD PHAM DIRECTIVE Health Care Decision (hx) 08/14/2014 AD PHAM DIRECTIVE Health Care Decision (hx) 08/14/2014 AD PHAM DIRECTIVE Health Care Decision (hx) 08/14/2014 AD PHAM DIRECTIVE Health Care Decision (hx) 08/14/2014 AD PHAM DIRECTIVE Health Care Decision (hx) 08/14/2014 AD PHAM DIRECTIVE Health Care Decision (hx) 08/14/2014 AD PHAM DIRECTIVE Health Care Decision (hx) 08/14/2014 AD PHAM DIRECTIVE Health Care Decision (hx) 08/14/2014 AD PHAM DIRECTIVE Care Teams Medical Unit Secretary Relationship Specialty Start Date End Date Jhon Carr MD [address] [place], [place] [id number] PCP - General Internal Medicine 01/27/11
--- OUTSIDE RECORDS SUMMARY | 2024-09-05 11:33 | XMS_ITS | Clinical Summary ---
Author Organization [facility] Address [address] [address] Phone Care Team Providers Care Files Supervisor Name Role Phone John Carr MD Primary Care Provider + [phone] Allergies Active Allergy Reactions Criticality Noted Date Comments Nitrous Oxide Nausea And Vomiting 03/19/2023 Other Reaction(s): NAUSEOUS Penicillins Other (see comments) 07/11/2024 Medications albuterol HFA (PROVENTIL HFA;VENTOLIN HFA) 108 (90 Base) MCG/ACT inhaler 1 puff 3 Active amLODIPine (NORVASC) 5 MG tablet Take 7.5 mg by mouth in the morning. 8 06/27/19 26 Active Xarelto 20 MG tablet Take 20 mg by mouth 1 (one) time each day Active atenolol (TENORMIN) 50 MG tablet Take 50 mg by mouth in the morning and 50 mg in the evening. 8 Active buPROPion XL (WELLBUTRIN XL) 150 MG 24 hr tablet TAKE 1 TABLET ONCE DAILY INTHE MORNING Active cholecalciferol (Vitamin D-[address]) 25 MCG (1000 UT) tablet Take 1,000 Units by mouth Active cyanocobalamin (VITAMIN B-12) 100 MCG tablet Take 50 mcg by mouth 1 (one) time each day Active fenofibrate (TRIGLIDE) 160 MG tablet Take 160 mg by mouth in the morning. 9 Active metFORMIN (GLUCOPHAGE) 500 MG tablet Take 500 mg by mouth 1 (one) time each day Active hydroxychloroqui ne (PLAQUENIL) 200 MG tablet 200 mg in the morning. 8 Active losartan (COZAAR) 50 MG tablet Take 100 mg by mouth 9 Active Magnesium Oxide (DIASENSE MAGNESIUM PO) Take 800 mg by mouth in the morning and 800 mg in the evening. Active Methylphenidate HCl (methylphenidate ER) 54 MG 24 hr tablet Take 54 mg by mouth in the morning. Active Multiple Vitamin (Multivitamin Adult) tablet Take 1 tablet by mouth 1 (one) time each day Active ondansetron (ZOFRAN) 8 MG tablet TAKE 1 TABLET DAILY DIRECTED Active scopolamine (TRANSDERM-SCOP) 1 MG/3DAYS patch 72 hour if needed 5 Active simvastatin (ZOCOR) 40 MG tablet TAKE 1 TABLET ONCE DAILY ATBEDTIME 8 Active traZODone (DESYREL) 50 MG tablet if needed 5 Active sodium bicarbonate 650 MG tablet Take 0.5 tablets (325 mg total) by mouth in the morning and 0.5 tablets (325 mg total) in the evening. 90 tablet 5 11/03/19 25 Active Active Problems Problem Noted Date Diagnosed Date Stage 3a chronic kidney disease 07/11/2024 Type 2 diabetes mellitus wit h diabetic chronic kidney disease 07/11/2024 Hyperkalemia 07/11/2024 Encounters Date Type Department Care Team Description 08/04/2024 9:15 AM EDT Office Visit [facility] [address] [phone] Jorge A Lopez MD Stage 3a chronic kidney disease (HCC) (Primary Dx); Hyperkalemia; Type 2 diabetes mellitus with diabetic chronic kidney disease (HCC) 07/19/2024 Orders Only [facility] [address] [phone] Jorge A Lopez MD 07/12/2024 Orders Only [facility] [address] [phone] Jorge A Lopez MD 07/12/2024 Office Communication [facility] [address] [place] [phone] Jorge A Lopez MD 07/11/2024 10:30 AM EDT Office Visit [facility] [address] [phone] Jorge A Lopez MD Stage 3a chronic kidney disease (HCC) (Primary Dx); Type 2 diabetes mellitus with diabetic chronic kidney disease (HCC); Hyperkalemia from Last 3 Months Family History Medical History Relation Comments Stroke Father Diabetes Mother type 2 Heart disease Mother NM Heart disease Sibling 1 brother Stroke Sibling 2 brother Relation Status Comments Father Mother Sibling 1 Sibling 2 Social History Tobacco Use Types Packs/Day Years Used Date Smoking Tobacco: Never Alcohol Use Standard Drinks/Week Comments No 0 (1 standard drink = 0.6 oz pur e alcohol) Comments Unknown Sex and Gender Information Value Date Recorded Sex Assigned at Not on file Legal Sex Female 4:45 PM EST Gender Identity Not on file Sexual Orientation Not on file Last Filed Vital Signs Vital Sign Reading Time Taken Comments Blood Pressure 130/60 08/04/2024 9:04 AM EDT Pulse 55 08/04/2024 9:04 AM EDT Temperature - - Respiratory Rate - - Oxygen Saturation 97% 08/04/2024 9:04 AM EDT Inhaled Oxygen Concentration - - Weight 61.3 kg (135 lb 3.2 oz) 08/04/2024 9:04 A M EDT Height - - Body Mass Index - - Plan of Treatment Upcoming Encounters Date Type Department Care Team (Late st Contact Info) Description 01/29/2025 10:15 AM EST [facility] [address] [phone] Eugenia Mann ARNP [address] [phone] Health Maintenance Due Date Last Done Comments Breast Cancer Screening 1950 Colorectal Cancer Screening: Annual FOBT 2001 Colorectal Cancer Screening: Colonoscopy 2001 Colorectal Cancer Screening: Sigmoidoscopy 2001 Pneumococcal Vaccine: 50+ Years (2 of 2 - PPSV23, PCV20, or PCV21) 11/14/2014 09/19/2014 Diabetes: Hemoglobin A1C 04/08/2020 Diabetes: Ophthalmology Exam 04/08/2020 Diabetes: Pedal Pulse Checked 04/08/2020 Diabetes: Sensory Foot Exam 04/08/2020 Diabetes: Visual Foot Exam 04/08/2020 Influenza Vaccine (Season Ended) 2024 01/21/2023, 02/02/2018, 12/09/2015, Additional history exists Pneumococcal Vaccine: Peds (0 to 5 Years) and At-Risk Patients (6 to 49 Years) Discontinued 09/19/2014 Hepatitis B Vaccine Aged Out No longe r eligible based on patient's age to complete this topic Procedures Procedure Name Priority Date/Time Associated Diagnosis Comments PTH, INTACT Routine 07/19/2024 1:47 PM EDT URINE CULTURE Routine 07/19/2024 1:47 PM EDT MAGNESIUM Routine 07/19/2024 1:47 PM EDT POTASSIUM, HEPARIN PLASMA Routine 07/19/2024 1:47 PM EDT VITAMIN D 25 HYDROXY Routine 07/19/2024 1:47 PM EDT URINE ALBUMIN / CREATININE RATIO Routine 07/19/2024 1:47 PM EDT PROTEIN / CREATININE RATIO, URINE Routine 07/19/2024 1:47 PM EDT CBC Routine 07/19/2024 1:47 PM EDT RENAL FUNCTION PANEL Routine 07/19/2024 1:47 PM EDT URINALYSIS WITH MICROSCOPIC Routine 07/19/2024 1:47 PM EDT RESULT Routine 07/19/2024 1:47 PM EDT MICROSCOPIC EXAMINATION - DO NOT USE Routine 07/19/2024 1:47 PM EDT ALT EXT LABS Routine 07/10/2024 ALT EXT LABS Routine 06/14/2024 from Last 3 Months Results * Potassium, Plasma (07/19/2024 1:47 PM EDT) Potassium 4.8 3.5 - 5.2 mmol/L [facility] 07/19/2024 1:47 PM EDT 07/19/2024 Comment:UC Jorge A Lopez MD LAB BLOOD ORDERABLES Final Re sult [facility] [address] [place] [address] * Result (07/19/2024 1:47 PM EDT) Result Comment [facility] Comment: Mixed urogenital jimmy 10,000-25,000 colony forming units per mL 07/19/2024 1:47 PM EDT 07/19/2024 Jorge A Lopez MD LAB MICROBIOLOGY - GENERAL OR DERABLES Final Result [facility] [address], [address] [place] [address] * Microscopic Examination (07/19/2024 1:47 PM EDT) WBC, Urine None seen 0 - 5 /hpf [facility] RBC, Urine 0-2 0 - 2 /hpf [facility] Squamous Epithelial, Urine None seen 0 - 10 /hpf [facility] Casts None seen None seen /lpf [facility] Bacteria, Urine None seen None seen/Few [facility] 07/19/2024 1:47 PM EDT 07/19/2024 Jorge A Lopez MD LAB MICROBIOLOGY - GENERAL OR DERABLES Final Result Performing Organization Address City/[facility]/ZIP Co de Phone Number [facility] [address] [place] [address] * (ABNORMAL) Protein, Total, Random Urine w/Creatinine (Protein/Creat Ratio) (07/19/2024 1:47 PM EDT) Creatinine, Ur 48.3 Not Estab. mg/dL [facility] Protein, Ur 10.4 Not Estab. mg/dL [facility] Urine Protein/Creati nine Ratio 215(H) 0 - 200 mg/g creat [facility] 07/19/2024 1:47 PM EDT 07/19/2024 Jorge A Lopez MD LAB URINE ORDERABLES Final Re sult Performing Organization Address [facility]/ZIP Co de Phone Number [facility] [address] [place] [address] * Urine Albumin / Creatinine Ratio (07/19/2024 1:47 PM EDT) Albumin, Urine 3.6 Not Estab. ug/mL [facility] Albumin/Creatin ine Ratio 7 0 - 29 mg/g creat [facility] Comment: Normal: 0 - 29 Moderately increased: 30 - 300 Severely increased: >300 07/19/2024 1:47 PM EDT 07/19/2024 Jorge A Lopez MD LAB URINE ORDERABLES Final Re [facility]ult [facility] [address] [place] [address] * Vitamin D 25 Hydroxy (07/19/2024 1:47 PM EDT) Vitamin D, 25-OH, Total 35.6 30.0 - 100.0 ng/mL [facility] Comment: Vitamin D deficiency has been defined by the [place] of Medicine and an Endocrine Society practice guideline as a level of serum 25-OH vitamin D less than 20 ng/mL (1,2). The Endocrine Society went on to further define vitamin D insufficiency as a level between 21 and 29 ng/mL (2). 1. IOM ([place] of Medicine). 2010. Dietary reference intakes for calcium and D. [place]: The National Academies Press. 2. Svetlana MF, Josep MORAN, Jovon MERRILL, et al. Evaluation, treatment, and prevention of vitamin D deficiency: an Endocrine Society clinical practice guideline. JCEM. 2010; 96(7):1911-30. 07/19/2024 1:47 PM EDT 07/19/2024 Jorge A Lopez MD LAB BLOOD ORDERABLES Final Re sult [facility] [address] [place] [address] * Urinalysis with microscopic (07/19/2024 1:47 PM EDT) Specific [place], Urine 1.011 1.005 - 1.030 [facility] pH Urine 6.5 5.0 - 7.5 [facility] Color, Urine Yellow Yellow [facility] [phone] Appearance Urine Clear Clear [facility] WBC Esterase Urine Negative Negative [facility] Protein, Ur Negative Negative/Tra ce [facility] Glucose, Ur Negative Negative [facility] Ketones, Urine Negative Negative [facility] Blood Urine Negative Negative [facility] Bilirubin Urine Negative Negative [facility] Urobilinogen Urine 0.2 0.2 - 1.0 mg/dL [facility] [phone] Nitrite, Urine Negative Negative [facility] Microscopic Examination Comment [facility] [phone] Comment:Microscopic follows if indicated. Other Microsc. Observations See below: [facility] Comment:Microscopic was cm cated and was performed. 07/19/2024 1:47 PM EDT 07/19/2024 us Jorge A Lopez MD LAB URINE ORDERABLES Final Re sult [facility] [address] [place] [address] * CBC (07/19/2024 1:47 PM EDT) WBC 5.7 3.4 - 10.8 x10E3/uL [facility] RBC 4.70 3.77 - 5.28 x10E6/uL [facility] Hemoglobin 13.0 11.1 - 15.9 g/dL [facility] Hematocrit 41.0 34.0 - 46.6 % [facility] MCV 87 79 - 97 fL [facility] MCH 27.7 26.6 - 33.0 pg [facility] MCHC 31.7 31.5 - 35.7 g/dL [facility] RDW 14.0 11.7 - 15.4 % [facility] Platelets 423 150 - 450 x10E3/uL [facility] 07/19/2024 1:47 PM EDT 07/19/2024 Jorge A Lopez MD LAB BLOOD ORDERABLES Final Re sult [facility] [address] [place] [address] * Urine Culture (07/19/2024 1:47 PM EDT) Culture Result, Urine [facility] 07/19/2024 1:47 PM EDT 07/19/2024 Comment: Jorge A Lopez MD LAB URINE ORDERABLES Final Re sult Performing Organization Address [facility]/ZIP Co de Phone Number [facility] [address], [address] [place] [address] * PTH, Intact (07/19/2024 1:47 PM EDT) PTH 20 15 - 65 pg/mL [facility] 07/19/2024 1:47 PM EDT 07/19/2024 Comment: Jorge A Lopez MD LAB BLOOD ORDERABLES Final Re sult Performing Organization Address [facility]/ZIP Co de Phone Number [facility] [address] [place] [address] * Magnesium (07/19/2024 1:47 PM EDT) Magnesium 2.0 1.6 - 2.3 mg/dL [facility] 07/19/2024 1:47 PM EDT 07/19/2024 Comment:ARABELLA Jorge A Lopez MD LAB BLOOD ORDERABLES Final Re sult [facility] [address] [place] [address] * (ABNORMAL) Renal Function Panel (07/19/2024 1:47 PM EDT) Glucose 126(H) 70 - 99 mg/dL [facility] BUN 23 8 - 27 mg/dL [facility] Creatinine 0.99 0.57 - 1.00 mg/dL [facility] eGFR CKD-EPI CR 2020 61 >59 mL/min/1.7 3 [facility] BUN/Creatinine Ratio 23 12 - 28 [facility] Sodium 136 134 - 144 mmol/L [facility] Potassium 5.0 3.5 - 5.2 mmol/L [facility] Chloride 98 96 - 106 mmol/L [facility] Bicarbonate (CO2) 19(L) 20 - 29 mmol/L [facility] Calcium 10.0 8.7 - 10.3 mg/dL [facility] Albumin 4.6 3.8 - 4.8 g/dL [facility] Phosphorus 3.8 3.0 - 4.3 mg/dL [facility] 07/19/2024 1:47 PM EDT 07/19/2024 Comment: Jorge A Lopez MD LAB BLOOD ORDERABLES Final Re sult [facility] [address] [place] [address] * (ABNORMAL) ALT EXT LABS (07/10/2024) Only the most recent of2 resultswithin the time period is included. WBC 8.4 3.3 - 10.0 10*3/ML Red Blood Cell Count 4.54 Hemoglobin 12.5 12.0 - 16.0 Hematocrit 39.3 36.0 - 46.0 Platelets 432(A) 150 - 399 10*3/UL BUN 27(A) 4 - 21 mg/dL Creatinine 1.16(A) 0.50 - 1.10 mg/dL Calcium 9.7 8.7 - 10.7 mg/dL Sodium 138 137 - 147 Potassium 4.7 3.4 - 5.5 Chloride 101.0 99.0 - 108.0 eGFR Non-Afr [place] 50 07/10/2024 Historical Provider LAB BLOOD ORDERABLES Suzie l Result from Last 3 Months Insurance Medicare [facility] Care Teams Files Supervisor Relationship Specialty Start Date End Date John Carr MD [address] [place] [phone] PCP - General Internal Medicine 06/15/24
== END 2024-09-05 11:02 | disposition home or self-care (01) ==
PROVIDERS: PCP Internal Medicine; Visit Provider Hospitalist
DX: R91.8 Other nonspecific abnormal finding of lung field (principal); J41.8 Mixed simple and mucopurulent chronic bronchitis; R05.3 Chronic cough
CPT/HCPCS: 99203

== ENCOUNTER → 2024-09-05 10:24 | Outpatient (BNVA) | payer MEDICARE, OTHER, SELFPAY | PROVIDERS: PCP Internal Medicine; Visit Provider Hospitalist | DX: J41.8 Mixed simple and mucopurulent chronic bronchitis (principal); R05.3 Chronic cough; R91.8 Other nonspecific abnormal finding of lung field; Z79.51 Long term (current) use of inhaled steroids | CPT/HCPCS: 99202 ==

== ENCOUNTER 2024-11-23 09:41 | Outpatient (REF) | payer MEDICARE, OTHER, SELFPAY ==
--- NOTE | 2024-11-23 09:45 | PFT_ITS ---
Flows: FEV1: 77 % of predicted at 1.53 L FVC: 101 % of predicted at 2.60 L FEV1/FVC: 59 % Bronchodilator response: Present Volumes: Total lung capacity: 98 % of predicted at 4.54 L Residual volume: 113 % of predicted at 2.10 L Slow vital capacity: 90 % of predicted at 2.44 L Expiratory reserve volume: 62 % of predicted at 0.39 L Diffusion capacity: Mildly decreased Impression: Moderate obstructive ventilatory defect with positive bronchodilator response. Decreased diffusion capacity suggests emphysema. MTDD
[2024-11-23 10:35] VITALS: PULSE 53; O2SAT 99
--- OUTSIDE RECORDS SUMMARY | 2024-11-23 11:20 | XMS_ITS | Clinical Summary ---
Author Organization [facility] Address [address] [address] Phone Care Team Providers Care Facility Operations Manager Name Role Phone John Carr MD Primary Care Provider [phone] Allergies Active Allergy Reactions Criticality Noted Date Comments Nitrous Oxide Nausea and/or Vomiting 03/19/2023 Penicillins Angioedema 2015 Medications hydroxychloroquine (PLAQUENIL) 200 mg tablet Take 200 mg by mouth daily. Active methylphenidate (CONCERTA) 54 MG CR tablet Take 54 mg by mouth every morning. Active buPROPion (WELLBUTRIN XL) 150 MG 24 hr tablet Take 150 mg by mouth daily. Active omeprazole (PRILOSEC) 40 MG capsule Take 40 mg by mouth daily. Active cholecalciferol (VITAMIN D3) 25 MCG (1,000 unit) tablet Take 1,000 Units by mouth daily. Active fenofibrate (LOFIBRA) 160 MG tablet Take 160 mg by mouth daily. Active atenolol (TENORMIN) 50 mg tabletIndications: Atrial flutter Take 1 tablet (50 mg total) by mouth 2 (two) times a day. 180 tablet 3 05/19/19 18 Active albuterol 90 mcg/actuation inhaler Inhale into the lungs every 4 (four) hours as needed. 08/07/19 23 Active amLODIPine (NORVASC) 5 MG tablet 7.5 mg daily. Active CYANOCOBALAMIN, VITAMIN B-12, ORAL Take by mouth daily. Active losartan (COZAAR) 50 MG tablet 50 mg. Active ondansetron (ZOFRAN-ODT) 4 MG disintegrating tablet Take 8 mg by mouth daily. Active rivaroxaban (XARELTO) 20 mg Tab 1 tablet Orally Once a day Active simvastatin (ZOCOR) 40 MG tablet 1 tablet in the evening Orally Once a day Active MAGNESIUM ORAL Take by mouth. Active ONETOUCH ULTRA TEST Strp stripsIndications: Type 2 diabetes mellitus with peripheral neuropathy Test glucose once daily 100 strip 3 09/21/19 24 Active WIXELA INHUB 250-50 mcg/dose DISKUS Inhale 250 mcg/actuation of fluticasone into the lungs 2 (two) times a day. 09/06/19 25 Active fluticasone propionate (FLONASE) 50 mcg/actuation nasal spray 2 sprays by Nasal route daily. 09/06/19 25 Active scopolamine (TRANSDERM-SCOP) 1 mg over 3 days as needed. 05/11/19 25 Active metFORMIN (GLUCOPHAGE-XR) 500 MG 24 hr tabletIndications: Type 2 diabetes mellitus with peripheral neuropathy Take 1 tablet (500 mg total) by mouth daily with breakfast. 180 tablet 3 10/03/19 25 Active sodium bicarbonate 650 mg tablet Take 325 mg by mouth 2 (two) times a day. 08/05/19 25 025 Active Problems Problem Noted Date Diagnosed Date Anxiety 09/04/2022 09/04/2022 Attention deficit hyperactivity disorder (ADHD) 09/04/2022 09/04/2022 Elevated blood pressure 09/04/2022 09/05/19 23 Overview (09/04/2022): Elevated blood pressure. Service date: 05/17/2013. Author: Lisa Floyd MD. First degree atrioventricular block 09/04/2022 09/04/2022 Overview (09/04/2022): First degree atrioventricular block. Service date: 10/03/2014. Author: Marissa Smith MD. Patent foramen ovale 09/04/2022 09/04/2022 Overview (09/04/2022): Patent foramen ovale. Service date: 01/16/2015. Author: Lisa Floyd MD. Supraventricular tachycardia 09/04/2022 Overview (09/04/2022): Supraventricular tachycardia. Service date: 01/16/2015. Author: Lisa Floyd MD. Summary: as above. Dyslipidemia 09/02/2022 09/02/2022 Hypertension 09/02/2022 09/02/2022 Malignant neoplasm of breast 09/02/2022 Hyperlipidemia 07/05/2016 NSVT (nonsustained ventricular tachycardia) 04/2015 Overview (08/08/2015): 23 beat run noted on Cardionet monitor in March 2015 in setting of congenital HD with normal perfusion on MIBI 11/23/14. Assessment & Plan (06/24/2016 10:15 AM EDT): Continue on atenolol. No symptoms of syncope or presyncope. Normal perfusion on ETT. Assessment & Plan (08/08/2015 1:17 PM EDT): Will increase atenolol to 50mg BID. 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 s/p CTI 12/07/14. Some atrial tachycardia on Cardionet monitor lasting 1 hour but symptoms are much improved. On Eliquis for thromboembolic protection with CHADS of 2, CHADS- VASC of 3. Assessment & Plan (06/24/2016 10:14 AM EDT): Doing well with no symptoms of recurrent sustained arrhythmia. She will continue on her current regimen and will follow up with Dr. Byrnes as scheduled. Assessment & Plan (08/08/2015 1:19 PM EDT): Mrs. Ibarra is a 64 yo woman with atrial flutter, s/p CTI 12/07/14. She has some mild symptoms since and Cardionet monitors have failed to show anything longer than an hour. She will remain on Eliquis for now. She is scheduled to have L knee replacement on 09/23/15 and can hold Eliquis prior without the need for bridging for whatever the orthopedic folks would like. She should resume as soon as safely possible following surgery. She will have one more Cardionet and we will see her back in the fall. 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 Has been euthyroid. No compressive symptoms. Ultrasound stable in October 2022. Assessment & Plan (03/29/2024 3:59 PM EST): Longstanding, s/p multiple FNA/ultrasounds. Has been euthyroid. No compressive symptoms. Stable exam. Ultrasound stable in October 2022. Assessment & Plan (01/26/2024 3:15 PM EST): Longstanding, s/p multiple FNA/ultrasounds. Has been euthyroid. Ultrasound stable in October 2022. Assessment & Plan (09/21/2023 12:54 PM EDT): Longstanding, s/p multiple FNA/ultrasounds. Clinically & biochemically euthyroid. No compressive symptoms. Ultrasound stable in October 2022. Assessment & Plan (03/19/2023 1:52 PM EST): Clinically & biochemically euthyroid. No compressive symptoms. Exam stable. Ultrasound stable in October. Assessment & Plan (09/04/2022 10:44 AM EDT): Has been euthyroid. Exam has been stable. Will continue to monitor. Type 2 diabetes mellitus with peripheral neuropa thy Assessment & Plan (10/03/2024 2:37 PM EDT): Control appears good based on hba1c & fasting SMBG. Continue to work on eating healthy & to try to increase activity. To call or send in BG with problems with glycemic control. Up to date with [employer]/creat up to date, normal. Assessment & Plan (03/29/2024 4:01 PM EST): Control has been good but is deteriorating with increase in SMBG & HbA1c. Advised to resume metformin - to start w/ 1 tablet daily with food for a few weeks & titrate up to 1 tablet bid as tolerated. Will use extended release to see if that is better tolerated than immediate release. Continue to work on eating healthy & to try to increase activity. To call or send in BG with problems with glycemic control. Up to date with [employer]. [employer]creat up to date, normal. Foot & nail care good. Assessment & Plan (01/26/2024 3:17 PM EST): Control has been good. SMBG levels are slightly higher, with occasional readings in the mid-upper 100s, usually explainable but uncertain why high today. She has had a lot of stress recently. Last Hba1c was fine. Will repeat prior to follow up. Advised not to take metformin as needed, we will continue to monitor for now & resume if looks like needs it on an ongoing basis. Continue to work on eating healthy & keeping active. To call or send in BG with problems with glycemic control. Up to date with [employer]. [employer] up to date, normal. Assessment & Plan (09/21/2023 12:55 PM EDT): Control has been good. OK to trial d/c metformin & see how BG do given loose bowels. Continue to work on eating healthy & keeping active. To call or send in BG with problems with glycemic control. Up to date with [employer]. [employer] up to date, normal. Assessment & Plan (03/19/2023 1:54 PM EST): Control has been good. Continue to work on eating healthy & keeping active. To call or send in BG with problems with glycemic control. Up to date with ophtho. Foot & nail care good. She does have more significant neuropathy on right than noted on exam last year, not symptomatic, would be unlikely related to DM given asymmetry. Will do umalb/creat. BP under reasonable control. Assessment & Plan (09/04/2022 10:44 AM EDT): Control has been good. Will call for recent labs from PCP. Continue to work on eating healthy & keeping active. To call or send in BG with problems with glycemic control. Up to date with ophtho. Follows with podiatry. BP under reasonable control. Abnormal serum creatinine level Assessment & Plan (10/03/2024 2:38 PM EDT): Creatinine worse c/w previous. Forwarded labs to renal/PCP/cardiology. Advised to contact renal to see what they advise. Encounters Date Type Department Care Team Description 10/02/2024 3:40 PM EDT Office Visit [facility] Endocrinology [address] [place] [address] Aydee Hill MD Type 2 diabetes mellitus with peripheral neuropathy (Primary Dx); Multinodular goiter; Abnormal serum creatinine level 09/28/2024 Orders Only [facility] Diabetes Center [address] [place] [address] [place] [address] Umu Delarosa [place] Type 2 diabetes mellitus with peripheral neuropathy 09/25/2024 Orders Only [facility] [address] [place] [address] [place] [address] Umu Delarosa [place] Type 2 diabetes mellitus with peripheral neuropathy from Last 3 Months Immunizations Immunization Administration Dates Next Due Influenza High-Dose Quadrivalent Preservative Fr ee IM 12/13/2019 Influenza High-Dose Trivalent Preservative Free IM 01/21/2023 Influenza Quadrivalent Preservative Free IM 11/06 Influenza Quadrivalent w/ Preservative IM 2015 Influenza Trivalent Adjuvanted Preservative free IM 02/02/2018 Zoster recombinant 12/13/2019 Family History Medical History Relation Comments Diabetes mellitus Brother Relation Status Comments Brother Social History Tobacco Use Types Packs/Day Years Used Date Smoking Tobacco: Unknown Alcohol Use Standard Drinks/Week Comments No 0 (1 standard drink = 0.6 oz pur e alcohol) Education Answer Date Recorded Are you interested in more education? Not on franco e 07/19/2022 Are you concerned about learning? Not on file 07/19/2022 No 07/19/2022 No 07/19/2022 Digital Access Answer Date Recorded No 2022 No 2022 Reliable internet access at home? Not on file 2022 Device with a working camera? Not on file Comments Unknown Sex and Gender Information Value Date Recorded Sex Assigned at Not on file Legal Sex Female 5:55 PM EST Gender Identity Not on file Sexual Orientation Not on file Last Filed Vital Signs Vital Sign Reading Time Taken Comments Blood Pressure 116/70 10/02/2024 3:41 PM EDT Pulse 57 10/02/2024 3:41 PM EDT Temperature 36.3 C (97.3 F) 09/21/2023 10:24 AM EDT Respiratory Rate 10 09/21/2023 10:24 AM EDT Oxygen Saturation 93% 10/02/2024 3:41 PM EDT Inhaled Oxygen Concentration - - Weight 59.4 kg (131 lb) 10/02/2024 3:41 PM EDT Height 158.8 cm (5' 2.52 ) 10/02/2024 3:41 PM ED T Body Mass Index 23.56 10/02/2024 3:41 PM EDT Plan of Treatment Upcoming Encounters Date Type Department Care Team (Late st Contact Info) Description 03/29/2025 1:20 PM EST Office Visit [facility] Endocrinology [address] [place] [address] [place] [address] Aydee Hill MD [address] [place] [address] [address] [place] [address] Health Maintenance Due Date Last Done Comments Adult Td,Tdap Booster 1950 DEPRESSION SCREENING 1964 SMOKING Hx and SMOKELESS TOBACCO SCREENING 1965 HEPATITIS C SCREENING 1970 PNEUMOCOCCAL VACCINES (50+ years) (1 of 2 - PCV) 08/03/1971 MAMMOGRAM 1992 COLOGUARD 1997 COLONOSCOPY 1997 COLORECTAL CANCER SCREENING 1997 FIT TEST 1997 FOBT 1997 SIGMOIDOSCOPY 1997 VIRTUAL COLONOSCOPY 1997 RSV VACCINE (1 - Risk 60-74 years 1-dose series) 2012 OSTEOPOROSIS SCREENING INITIAL (ONE-TIME) 2017 ZOSTER VACCINES (2 of 2) 02/07/2020 12/13/2019 DIABETIC EYE EXAM 09/02/2022 HEMOGLOBIN A1C 12/01/2023 05/31/2023 INFLUENZA VACCINE (#1) 2024 , 12/13/2019, 02/02/2018, Additional history exists COVID-19 VACCINE ( - season) 2024 BLOOD PRESSURE 04/04/2025 10/02/2024 CREATININE LEVEL 09/22/2025 09/22/2024, 10/2024, 11/05/2023, Additional history exists POTASSIUM LEVEL 09/22/2025 09/22/2024, 10/2024, 05/31/2023, Additional history exists HEPATITIS A VACCINES Aged Out No long er eligible based on patient's age to complete this topic HIB VACCINES Aged Out No longer eligi ble based on patient's age to complete this topic MENINGOCOCCAL VACCINES (ACWY) Aged Out No longer eligible based on patient's age to complete this topic MENINGOCOCCAL VACCINES (B) Aged Out N o longer eligible based on patient's age to complete this topic Medical Devices Not on file Procedures Procedure Name Priority Date/Time Associated Diagnosis Comments HEMOGLOBIN A1C Routine 09/24/2024 2:39 PM EDT Type 2 diabetes mellitus with peripheral neuropathy ASPARTATE AMINOTRANSFERASE (AST) Routine 09/22/2024 1:58 PM EDT Type 2 diabetes mellitus with peripheral neuropathy BASIC METABOLIC PANEL Routine 09/22/2024 1:58 PM EDT Type 2 diabetes mellitus with peripheral neuropathy ALANINE AMINOTRANSFERASE (ALT) Routine 09/22/2024 1:57 PM EDT Type 2 diabetes mellitus with peripheral neuropathy HEMOGLOBIN A1C Routine 05/31/2023 2:31 PM EDT from Last 3 Months or Most Recently Relevant to Health Maintenance Results * Hemoglobin A1c (09/24/2024 2:39 PM EDT) Only the most recent of2 resultswithin the time period is included. Blood Aydee Hill MD LAB BLOOD ORDERABLES F inal Result Performing Organization Address [facility] Co de Phone Number [address] [address] * Aspartate aminotransferase (AST) (09/22/2024 1:58 PM EDT) Blood Aydee Hill MD LAB BLOOD ORDERABLES F inal Result Performing Organization Address [facility] Co de Phone Number [address] [address] * Basic metabolic panel (09/22/2024 1:58 PM EDT) Blood Result [facility] Aydee Hill MD LAB BLOOD ORDERABLES F inal Result Performing Organization Address [facility] Co de Phone Number [address] [address] * Alanine aminotransferase (ALT) (09/22/2024 1:57 PM EDT) Blood Result [facility] Aydee Hill MD LAB BLOOD ORDERABLES F inal Result Performing Organization Address [facility] Co de Phone Number [address] [address] from Last 3 Months or Most Recently Relevant to Health Maintenance Insurance MEDICARE PART A & B [employer] MEDICARE SUPPLEMENT MEDICARE PART A & B [facility] [employer] MEDICARE SUPPLEMENT MEDICARE PART A & B [facility] [employer] MEDICARE SUPPLEMENT MEDICARE PART A & B Member Subscriber Plan / Payer (Ef fective 2021-Present) Name:Disha Ibarra Member ID:[id number] Relation to Subscriber:Self Name:Disha Ibarra Subscriber ID:[id number] Payer ID:[id number] Group ID:Not on file Type:Medicare Address: [facility] [employer] [facility] [address] MEDICARE SUPPLEMENT MEDICARE PART A & B Member Subscriber Plan / Payer (Ef fective 2021-Present) Name:Disha Ibarra Member ID:[id number] Relation to Subscriber:Self Name:Disha Ibarra Subscriber ID:[id number] Payer ID:[id number] Group ID:Not on file Type:Medicare Address: [employer] [address] [place] [id number] [place] [address] [employer] MEDICARE SUPPLEMENT MEDICARE PART A & B [facility] MEDICARE SUPPLEMENT Care Teams Facility Operations Manager Relationship Specialty Start Date End Date John Carr MD [address] [place] [id number] PCP - General 09/05/13 Additional Source Comments The information contained in this document represents components of the legal health record. It is not the complete legal health record.[facility]
--- OUTSIDE RECORDS SUMMARY | 2024-11-23 11:20 | XMS_ITS | Encounter Summary ---
Author Organization [facility] Address [address] [facility] [address] [place] [address] Phone Care Team Providers Care Hardboard Grinder Name Role Phone John Carr MD Primary Care Provider [phone] Reason for Visit * Reason Comments Medication Refill Encounter Details Date Type Department Care Team (Late Contact Info) Description 08/21/2018 Refill [facility] [place] [address] [place] [address], [address] [place] [address] Leo Rivas NP Medication Refill Social History Tobacco Use Types Packs/Day Years Used Date Smoking Tobacco: Unknown Alcohol Use Standard Drinks/Week Comments No 0 (1 standard drink = 0.6 oz pur e alcohol) Comments Unknown Sex and Gender Information Value Date Recorded Sex Assigned at Not on file Legal Sex Female 5:55 PM EST Gender Identity Not on file Sexual Orientation Not on file documented as of this encounter Plan of Treatment Upcoming Encounters Date Type Department Care Team (Late Contact Info) Description 03/29/2025 1:20 PM EST Office Visit [facility] [address] [place] [address] Aydee Hill MD [address] [place] [phone] [email or web address] documented as of this encounter Visit Diagnoses Diagnosis Atrial flutter documented in this encounter Care Teams Hardboard Grinder Relationship Specialty Start Date End Date John Carr MD [address] [place] [phone] PCP - General 09/05/13 documented as of this encounter Additional Source Comments The information contained in this document represents components of the legal health record. It is not the complete legal health record.[facility]
--- OUTSIDE RECORDS SUMMARY | 2024-11-23 11:20 | XMS_ITS | Clinical Summary ---
Author Organization [facility] Address [address] [place] [address] Care Team Providers Care Patrol Community Service Officer Name Role Phone John Carr MD Primary Care Provider [phone] Allergies Active Allergy Reactions Criticality Noted Date [...] Osteoporosis Screening (DEXA Scan) 2017 Influenza Vaccine (#1) 2024 12/09/2015 RSV Adult > 60+ Yrs or Pregn ant (1 - 1-dose 75+ series) 08/03/2027 Hepatitis B Vaccines Aged Out No long er eligible based on patient's age to complete this topic RSV Ped < 20 months Aged Out No longe r eligible based on patient's age to complete this topic Care Teams Patrol Community Service Officer Relationship Specialty Start Date End Date John Carr MD PCP - General Internal Medicine 11/17/16
--- OUTSIDE RECORDS SUMMARY | 2024-11-23 11:20 | XMS_ITS | Encounter Summary ---
Author Organization [facility] Address [address] [facility] [address] [place] [address] Phone Care Team Providers Care Bedspread Seamer Name Role Phone John Carr MD Primary Care Provider [phone] Encounter Details Date Type Department Care Team (Latest Contact Info) Description 2015 Transcribe Orders [facility] Cardiology Division [address] [place] [address], [address] [place] [address] Marissa Smith MD [address] [place] [address] [address] [place] [address] [email or web address] Cardiac arrhythmia, unspecified cardiac arrhythmia type (Primary Dx) Social History Tobacco Use Types Packs/Day Years Used Date Smoking Tobacco: Never Assessed Comments Unknown Sex and Gender Information Value Date Recorded Sex Assigned at Not on file Legal Sex Female 5:55 PM EST Gender Identity Not on file Sexual Orientation Not on file documented as of this encounter Plan of Treatment Upcoming Encounters Date Type Department Care Team (Late st Contact Info) Description 03/29/2025 1:20 PM EST Office Visit [facility] [address] [place] [address] Aydee Hill MD [address] [place] [phone] [email or web address] Scheduled Orders Name Type Priority Associated Diagnoses Orde r Schedule ECG 12 lead ECG Routine Cardiac arrhythmia, unspecified cardiac arrhythmia type Expected: 2015, Expires: 08/01/2016 documented as of this encounter Visit Diagnoses Diagnosis Cardiac arrhythmia, unspecified cardiac arrhythmia type- Primary documented in this encounter Care Teams Bedspread Seamer Relationship Specialty Start Date End Date John Carr MD [address] [place] [address] PCP - General 09/05/13 documented as of this encounter Additional Source Comments The information contained in this document represents components of the legal health record. It is not the complete legal health record.[facility]
--- OUTSIDE RECORDS SUMMARY | 2024-11-23 11:20 | XMS_ITS | Clinical Summary ---
Author Organization [facility] Address [address] [place] [address] Phone Care Team Providers Care Bio Medical Technician Name Role Phone John Carr MD Primary Care Provider John Carr MD Unavailable John Carr MD Unavailable [phone] Héctor Hightower MD Unavailable [phone] Allergies Active Allergy Reactions Criticality Noted Date Comments Nitrous Oxide Nausea 08/25/2024 Penicillins Itching,Swelling 08/25/2024 Encounters Date Type Department Care Team Description 08/29/2024 Orders Only [facility] [address] [place] [phone] Héctor Hightower MD 08/25/2024 Orders Only [facility] [address] [place] [phone] Héctor Hightower MD Right atrial dilation (Primary Dx) 08/25/2024 Telephone [facility] Cardiology Scheduling [address] [place] [address] Héctor Hightower MD from Last 3 Months Social History Tobacco Use Types Packs/Day Years Used Date Smoking Tobacco: Never Assessed Comments Unknown Sex and Gender Information Value Date Recorded Sex Assigned at Not on file Legal Sex Female 3:01 AM EDT Gender Identity Not on file Sexual Orientation Not on file Plan of Treatment Upcoming Encounters Date Type Department Care Team (Late st Contact Info) Description 12/05/2024 5:00 PM EDT Appointment [facility] [address] [place] [address] Health Maintenance Due Date Last Done Comments HIV Screening 1950 MMR Vaccines (1 of 1 - Standard series) 1953 DTaP/Tdap/Td Vaccines (1 - Tdap) 08/03/1959 Varicella Vaccines (1 of 2 - 13+ 2-dose series) 1965 Hepatitis C Screening 1970 Influenza Vaccine (#1) 2024 , 01/21/2023, 12/13/2019, Additional history exists HIB Vaccines Aged Out No longer eligi ble based on patient's age to complete this topic HPV Vaccines (No Doses Required) Completed Hepatitis A Vaccines Aged Out No long [...] patient's age to complete this topic Meningococcal Vaccine Aged Out No magdi jena eligible based on patient's age to complete this topic Rotavirus Vaccines Aged Out No longer eligible based on patient's age to complete this topic Insurance MEDICARE [facility] MEDICARE [facility] Care Teams Bio Medical Technician Relationship Specialty Start Date End Date John Carr MD [address] [place] [address] PCP - General 04/17/19 John Carr MD [address] [place] [address] PCP - Insurance PCP 05/24/19 John Carr MD [address] [place] [address] PCP - Clinical PCP 04/17/19 Héctor Hightower MD [address] [place] [address] Tire Assembler 08/07/23
--- OUTSIDE RECORDS SUMMARY | 2024-11-23 11:20 | XMS_ITS | Patient Health Record ---
Author Organization [employer] Address [address] [facility] [address] [place] [address] Support Name Relationship Address Phone Disha Ibarra Guarantor Unknown [phone] Allergies Allergen (clinical drug ingredient) Drug/Non Drug [...]
--- OUTSIDE RECORDS SUMMARY | 2024-11-23 11:20 | XMS_ITS | Clinical Summary ---
Author Organization [address] [place] [address] [place] [phone] Phone Care Team Providers Care Elementary Ell Teacher Name Role Phone John Carr MD Primary Care Provider + [phone] Allergies Active Allergy Reactions Criticality Noted Date Comments Nitrous Oxide 04/30/2024 Penicillins 04/30/2024 Medications CYANOCOBALAMIN, VITAMIN B-12, ORAL Take by mouth daily. Active buPROPion XL (WELLBUTRIN XL) 150 mg 24 hr tablet TAKE 1 TABLET ONCE DAILY INTHE MORNING Active OneTouch Ultra Test test strip Test glucose once daily 4 Active atenoloL (TENORMIN) 50 mg tablet Take 1 tablet (50 mg total) by mouth 2 (two) times a day. Active albuterol HFA (PROAIR HFA ; PROVENTIL HFA ; VENTOLIN HFA) 90 mcg/actuation inhaler 1 puff every 4 (four) hours if needed. 4 Active cholecalciferol (VITAMIN D-3) 25 mcg (1,000 unit) tablet Take 1 tablet (1,000 Units total) by mouth daily. Active fenofibrate (LOFIBRA) 160 mg tablet Take 1 tablet (160 mg total) by mouth 1 (one) time each day. Active hydroxychloroqui ne (PLAQUENIL) 200 mg tablet 2 tablets (400 mg total) 1 (one) time each day. Active losartan (COZAAR) 100 mg tablet Take 0.5 tablets (50 mg total) by mouth 1 (one) time each day. Active metFORMIN XR (GLUCOPHAGE-XR) 500 mg 24 hr tablet Take 1 tablet (500 mg total) by mouth 2 times daily. 5 Active methylphenidate 54 mg 24 hr tablet Take 1 tablet (54 mg total) by mouth 1 (one) time each day. Active Xarelto 20 mg tablet Take 1 tablet (20 mg total) by mouth 1 (one) time each day. Active simvastatin (ZOCOR) 40 mg tablet TAKE 1 TABLET ONCE DAILY ATBEDTIME Active multivit-min/iro n/FA/vit K/lut (CENTRUM SILVER WOMEN ORAL) Take 1 tablet by mouth 1 (one) time each day. Active ergocalciferol (Vitamin D2) 1,250 mcg (50,000 unit) capsule Vitamin D Active cyanocobalamin (Vitamin B-12) 1,000 mcg tablet Vitamin B12 A ctive traZODone (DESYREL) 50 mg tablet if needed 5 Active MAGNESIUM ORAL Take by mouth. Active omeprazole (PriLOSEC) [address] capsuleIndicatio ns:Gastroesophag eal reflux disease without esophagitis Take 1 capsule (40 mg total) by mouth 1 (one) time each day. 90 each 5 07/25/19 26 Active ondansetron (ZOFRAN) 8 mg tabletIndication s:Gastroparesis Take 1 tablet (8 mg total) by mouth 1 (one) time each day. 90 tablet 3 5 07/25/19 26 Active amLODIPine (NORVASC) 5 mg tablet Take 1.5 tabs daily 11 each 5 Active amLODIPine (NORVASC) 5 mg tablet Take 1 tablet (5 mg total) by mouth 1 (one) time each day. In addition to 2.5 mg daily for total (7.5 mg ) 90 each 5 Active amLODIPine (NORVASC) 2.5 mg tablet Take 1 tablet (2.5 mg total) by mouth 1 (one) time each day. In addition to 5mg for a total of (7.5 mg) 90 each 5 08/29/19 26 Active Active Problems Problem Noted Date Diagnosed Date ADHD 07/14/2024 Multinodular goiter 07/14/2024 Overview (07/14/2024): 2002, FNA dominant right nodule in office 2001, benign; left nodule in 2002, via u/s,benign, bilateral 2007, benign; right 2017 d/t increase in size, benign, stable u/s 2022 Presence of artificial knee joint, bilateral 11/2024 Prosthetic joint implant failure ([facility] V24) 0 07/14/2024 Type 2 diabetes mellitus wit h peripheral neuropathy ([facility] V24, [facility] V28) 07/14/2024 Diabetes mellitus ([facility] V24, [facility] V28) 03/2024 LINO (dyspnea on exertion) 06/06/2024 Assessment & Plan (06/06/2024 4:39 PM EDT): As above, the patient does report worsening dyspnea on exertion which may be multifactorial in origin. She has underlying pulmonary disease and will continue to follow-up with her annual giving director for reevaluation. She also admits that over [...] care for further evaluation. Secondary hypercoagulable state ([facility] V24) Assessment & Plan (06/06/2024 4:39 PM EDT): First degree atrioventricular block 09/04/2022 Overview (06/06/2024): First degree atrioventricular block. Service date: 10/03/2014. Author: Marissa Smith MD. Supraventricular tachycardia ([facility] V24) 09/04 Overview (06/06/2024): Supraventricular tachycardia. Service [...] panel and CBC. 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 We discussed worrisome signs or symptoms for which she should return to care or seek urgent medical attention and she verbalizes understanding of this. We will continue to readdress this once her echo has been reviewed. Orders: Transthoracic echocardiogram (TTE) complete with PRN contrast, bubble, strain, and 3D order panel; Future Paroxysmal atrial flutter ([facility] V24, [facility] V28) 06/22/2022 Overview (06/06/2024): Last Assessment & [...] Ebstein's abnormality though the echo report from [facility] in a 2022 states that the [...] clinic with her last visit with Dr. Hightower being approximately 1 year ago. Her most [...] Type Department Care Team Description 08/28/2024 Telephone [facility] [address] [place] [address] Jorge Daniel MD 08/28/2024 Telephone [facility] [address] [place] [phone] Jorge Daniel MD 08/25/2024 Telephone [facility] [address] [facility] [address] [place] [address] Laure Rodriguez NP from Last 3 Months Surgical History Surgery Date Site/Laterality Comments CARPAL TUNNEL RELEASE PROCEDURE: TX NEUROPLASTY &/TRANSPOS MEDIAN NRV CARPAL TUNNE TUBAL LIGATION PROCEDURE: HISTORICAL TUBAL LIGATION APPENDECTOMY PROCEDURE: TX APPENDECTOMY BREAST LUMPECTOMY 02/25/2011 PROCEDURE: HISTORICAL BREAST [...] history presenting hazards to health(V15.89) Breast cancer (CMS/HCC V24, [facility] V28) 02/2011 DX:Breast cancer (HCC); COMM ENT: [...] Panel) 02/14/2022 Colorectal Cancer Screening: Colonoscopy 02/14/2022 Falls Risk Assessment 02/14/2022 Hepatitis C Screening 02/14/2022 Osteoporosis Screening (Bone Density Screening) 02/14/2022 Social Influencers of Health Screening 02/14/2022 Medicare Annual Wellness Visit 10/08/2023 10/07/2022 Depression Screening 03/08/2024 Diabetes: Blood Sugar Control Test (HGBA1C) 04/30/2024 Hypertension/CHF/CAD Annual BMP Blood Test 04/30/2024 Influenza Vaccine (#1) 2024 , 01/21/2023, 12/25/2021, Additional history exists Diabetes: Annual Urine Albumin-Creatinine Ratio (uACR) 07/19/2025 07/19/2024, 03/15/2024, 03/19/2023 HIB Vaccines Aged Out No longer eligi [...] age to complete this topic Insurance MEDICARE [facility] Advance Directives Documents on File Type Date Recorded Patient Bilingual Sales Assistant Expl anation Health Care Decision (hx) 08/17/2014 [...] (hx) 08/14/2014 AD PHAM DIRECTIVE Care Teams Elementary Ell Teacher Relationship Specialty Start Date End Date John Carr MD [address] [place] [address] PCP - General Internal Medicine 01/27/11
--- OUTSIDE RECORDS SUMMARY | 2024-11-23 11:20 | XMS_ITS | Encounter Summary ---
Author Organization [facility] Address [address] [facility] [address] [place] [address] Phone Care Team Providers Care Inspector Balance Truing Name Role Phone John Carr MD Primary Care Provider [phone] Encounter Details Date Type Department Care Team (Latest Contact Info) Description 06/18/2016 Transcribe Orders [facility] [address] [place] [address], [address] [place] [address] Marissa Smith MD [address] [place] [address] [address] [place] [address] [email or web address] Cardiac arrhythmia, unspecified cardiac arrhythmia type (Primary [...] 1:20 PM EST Office Visit [facility] [address] [place] [phone] Aydee Hill MD [address] [place] [phone] [email or web address] documented as of this encounter Visit Diagnoses Diagnosis Cardiac arrhythmia, unspecified cardiac arrhythmia type- Primary documented in this encounter Care Teams Inspector Balance Truing Relationship Specialty Start Date End Date John Carr MD [address] [place] [address] PCP - General 09/05/13 documented as of this encounter Additional Source Comments The information contained in this document represents components of the legal health record. It is not the complete legal health record.[facility]
== END 2024-11-23 09:42 | disposition home or self-care (01) ==
LOC: HO.RESP 09:41
PROVIDERS: PCP Internal Medicine; Visit Provider Hospitalist
DX: R91.8 Other nonspecific abnormal finding of lung field (principal); Z87.891 Personal history of nicotine dependence
CPT/HCPCS: 94010; 94640; 94727; 94729

== ENCOUNTER → 2024-11-23 09:45 | Outpatient (BNV) | payer MEDICARE, OTHER, SELFPAY | PROVIDERS: PCP Internal Medicine; Visit Provider Internal Medicine Pulmonary Disease | DX: J98.4 Other disorders of lung (principal) | CPT/HCPCS: 94060; 94727; 94729 ==

== ENCOUNTER 2024-12-06 15:46 | Outpatient (REF) | payer MEDICARE, OTHER, SELFPAY ==
--- NOTE | ~2024-12-06 | CT_ITS ---
CLINICAL HISTORY: R91.8 - Other nonspecific abnormal finding of lung field CT chest without contrast Comparison: None provided Findings: The right heart appears enlarged, in particular the right atrium. Aorta and pulmonary arteries appear nondilated. No pericardial effusion Heterogeneous thyroid with a peripherally calcified nodule arising from the inferior aspect. No hilar or mediastinal adenopathy. No chest wall lesions or axillary adenopathy. Decompressed esophagus. 3 mm noncalcified left upper lobe nodule image 24 series 4. Additional punctate calcified granuloma in the right upper lobe. No dense consolidation, pleural effusion or pneumothorax. The visualized upper abdomen is unremarkable. No acute fractures. IMPRESSION: 1. No acute cardiopulmonary disease. Sub 5 mm bilateral pulmonary nodules, likely benign. In a low risk patient no follow-up is necessary. In a high-risk patient an optional [address] could be considered. 2. Enlarged heterogeneous thyroid with calcified and noncalcified nodules. Recommend thyroid ultrasound to better characterize. This document has been electronically signed by: Sandy Banuelos MD on 12/08/2024 09:08:16
--- OUTSIDE RECORDS SUMMARY | 2024-12-06 16:26 | XMS_ITS | Encounter Summary ---
Author Organization [facility] Address [address] [facility] [address] [place] [address] Phone Care Team Providers Care Beck Tender Name Role Phone John Carr MD Primary Care Provider + [phone] Reason for Visit * Reason Comments Medication Refill Encounter Details Date Type Department Care Team (Late Contact Info) Description 08/21/2018 Refill [facility] Cardiology Division [address] [place] [address], [address] [place] [address] Leo Rivas NP Medication Refill Social History [...] 1:20 PM EST Office Visit [facility] [address] [place] [address] Aydee Hill MD [address] [place] [address] [email or web address] documented as of this encounter Visit Diagnoses Diagnosis Atrial flutter documented in this encounter Care Teams Beck Tender Relationship Specialty Start Date End Date John Carr MD [address] [place] [address] PCP - General 09/05/13 documented as of this encounter Additional Source Comments The information contained in this document represents components of the legal health record. It is not the complete legal health record.[facility]
--- OUTSIDE RECORDS SUMMARY | 2024-12-06 16:26 | XMS_ITS | Clinical Summary ---
Author Organization [facility] Address [address] [place] [phone] Phone Care Team Providers Care Senior Programmer Name Role Phone John Carr MD Primary Care Provider + [phone] Allergies Active Allergy Reactions Criticality Noted Date Comments Nitrous Oxide Nausea And Vomiting 03/19/2023 Other Reaction(s): NAUSEOUS Penicillins Other (see comments) 07/11/2024 Medications albuterol HFA (PROVENTIL HFA;VENTOLIN HFA) 108 (90 Base) MCG/ACT inhaler 1 puff 08/07/19 23 Active amLODIPine (NORVASC) 5 MG tablet Take 7.5 mg by mouth in the morning. 10/14/19 18 026 Active Xarelto 20 MG tablet Take 20 mg by mouth 1 (one) time each day Active atenolol (TENORMIN) 50 MG tablet Take 50 mg by mouth in the morning and 50 mg in the evening. 05/19/19 18 Active buPROPion XL (WELLBUTRIN XL) 150 MG [...] 160 mg by mouth in the morning. 06/23/19 19 Active metFORMIN (GLUCOPHAGE) 500 MG tablet Take 500 mg by mouth 1 (one) time each day Active hydroxychloroqu ine (PLAQUENIL) 200 MG tablet 200 mg in the morning. 10/14/19 18 Active losartan (COZAAR) 50 MG tablet Take 100 mg by mouth 06/23/19 19 Active Magnesium Oxide (DIASENSE MAGNESIUM PO) Take 800 mg by mouth in the morning and 800 mg in the evening. Active Methylphenidate HCl (methylphenidat e ER) 54 MG 24 hr tablet Take 54 mg by mouth in the morning. Active Multiple Vitamin (Multivitamin Adult) tablet Take 1 tablet by mouth 1 (one) time each day Active ondansetron (ZOFRAN) 8 MG tablet TAKE 1 TABLET DAILY DIRECTED Active scopolamine (TRANSDERM-SCOP ) 1 MG/3DAYS patch 72 hour if needed 05/11/19 25 Active simvastatin (ZOCOR) 40 MG tablet TAKE 1 TABLET ONCE DAILY ATBEDTIME 10/14/19 18 Active traZODone (DESYREL) 50 MG tablet if needed 05/11/19 25 Active sodium bicarbonate 650 MG tablet TAKE 1/2 TABLET(325 MG) BY MOUTH IN THE MORNING AND IN THE EVENING 90 tablet 11/08/19 25 Active sodium bicarbonate 650 MG tablet Take 1 tablet (650 mg total) by mouth in the morning and 1 tablet (650 mg total) in the evening. 180 tablet 1 11/08/19 25 026 Active sodium bicarbonate 650 MG tablet Take 0.5 tablets (325 mg total) by mouth in the morning and 0.5 tablets (325 mg total) in the evening. 90 tablet 08/05/19 25 025 Discontinued Active Problems Problem Noted Date Diagnosed Date Stage 3a chronic kidney disease 07/11/2024 Type 2 diabetes mellitus wit h diabetic chronic kidney disease 07/11/2024 Hyperkalemia 07/11/2024 Encounters Date Type Department Care Team Description 11/07/2024 Office Communication [facility] [address] [phone] Salomón Johnson 11/06/2024 Refill [facility] [address] [phone] Jorge A Lopez MD 10/30/2024 Refill [facility] [address] [phone] Cuong Vázquez from Last 3 Months Family History Medical History Relation Comments Stroke Father Diabetes Mother type 2 Heart disease Mother [place] Heart disease Sibling 1 brother Stroke Sibling [...] EST Office Visit [facility] [address] [phone] Johnathan EugeniaVALERY [address] [phone] Health Maintenance Due Date Last Done Comments [...] Diabetes: Visual Foot Exam 04/08/2020 Influenza Vaccine (#1) 2024 3, 02/02/2018, 12/09/2015, Additional history exists Pneumococcal Vaccine: Peds (0 to 5 Years) and At-Risk Patients (6 to 49 Years) Discontinued 09/19/2014 Hepatitis B Vaccine Aged Out No longe r eligible based on patient's age to complete this topic Insurance Medicare [facility] Care Teams Senior Programmer Relationship Specialty Start Date End Date John Carr MD [address] [place] [address] PCP - General Internal Medicine 06/15/24
--- OUTSIDE RECORDS SUMMARY | 2024-12-06 16:26 | XMS_ITS | Clinical Summary ---
Author Organization [facility] Address [address] [address] Phone Care Team Providers Care Glass Melt Operator Name Role Phone John Carr MD Primary Care Provider [phone] Allergies Active Allergy Reactions Criticality Noted Date [...] breakfast. 180 tablet 3 10/03/19 25 Active Active Problems Problem Noted Date [...] (06/18/2016): Ebstein's anamoly Multinodular goiter Overview (09/21/2023): 2002, FNA dominant right nodule in office [...] with glycemic control. Up to date with [employer] up to date, normal. Assessment & Plan [...] with glycemic control. Up to date with [employer] up to date, normal. Foot & [...] with glycemic control. Up to date with [employer] up to date, normal. Assessment & Plan (09/21/2023 12:55 PM EDT): Control has been good. OK to trial d/c metformin & see how BG do given loose bowels. Continue to work on eating healthy & keeping active. To call or send in BG with problems with glycemic control. Up to date with [employer] up to date, normal. Assessment & [...] Description 10/02/2024 3:40 PM EDT Office Visit [facility] Endocr[facility]ology [address] [phone] Aydee Hill MD Type 2 diabetes mellitus with peripheral neuropathy (Primary Dx); Multinodular goiter; Abnormal serum creatinine level 09/28/2024 Orders Only [facility] [address] [place] [address] [place] [address] Umu Delarosa [place] Type 2 diabetes mellitus with peripheral neuropathy 09/25/2024 Orders Only [facility] [address] [place] [address] [place] [address] Umu Delarosa [place] Type 2 diabetes mellitus [...] 1:20 PM EST Office Visit [facility] [address] [place] [address] [place] [address] Aydee Hill MD [address] [place] [address] [email or web address] Health Maintenance Due Date Last Done Comments [...] Additional history exists POTASSIUM LEVEL 09/22/2025 09/22/2024, 0 10/2024, 05/31/2023, Additional history exists HEPATITIS A [...] ORDERABLES F inal Result Performing Organization Address [facility] de Phone Number [address] [address] * Aspartate aminotransferase (AST) (09/22/2024 1:58 PM EDT) Blood Aydee Hill MD LAB BLOOD ORDERABLES F inal Result Performing Organization Address [facility] de Phone Number [address] [address] * Basic metabolic panel (09/22/2024 1:58 PM EDT) Blood Aydee Hill MD LAB BLOOD ORDERABLES F inal Result Performing Organization Address [facility] Co de Phone Number [address] [address] * Alanine aminotransferase (ALT) (09/22/2024 1:57 PM EDT) Blood Aydee Hill MD LAB BLOOD ORDERABLES F inal Result Performing Organization Address [facility] Co de Phone Number [address] [address] from Last 3 Months or Most Recently Relevant to Health Maintenance Insurance MEDICARE PART A & B [id number] MEDICARE SUPPLEMENT MEDICARE PART A & B [employer] [facility] [employer] MEDICARE SUPPLEMENT MEDICARE PART A & B [facility] MEDICARE SUPPLEMENT MEDICARE PART A & [facility] MEDICARE SUPPLEMENT MEDICARE PART A & B [facility] [employer] MEDICARE SUPPLEMENT MEDICARE PART A & B [facility] EXTENSION MEDICARE SUPPLEMENT Care Teams Glass Melt Operator Relationship Specialty Start Date End Date John Carr MD [address] [place] [address] PCP - General 09/05/13 Additional Source Comments The information contained in this document represents components of the legal health record. It is not the complete legal health record.[facility]
--- OUTSIDE RECORDS SUMMARY | 2024-12-06 16:26 | XMS_ITS | Encounter Summary ---
Author Organization [facility] Address [address] [facility] [address] [place] [address] Phone Care Team Providers Care Principal Technologist Name Role Phone John Carr MD Primary Care Provider + [phone] Encounter Details Date Type Department Care Team (Latest Contact Info) Description 2015 Transcribe Orders [facility] Cardiology Division [address] [place] [address], [address] [place] [address] Marissa Smith MD [address] [place], [place] [address] [place] [address] [email or web address] Cardiac arrhythmia, unspecified cardiac arrhythmia type (Primary [...] 1:20 PM EST Office Visit [facility] [address] [place] [address] Aydee Hill MD [address] [place] [phone] [email or web address] Scheduled Orders Name Type Priority Associated Diagnoses Orde r Schedule ECG 12 lead ECG Routine Cardiac arrhythmia, unspecified cardiac arrhythmia type Expected: 2015, Expires: 08/01/2016 documented as of this encounter Visit Diagnoses Diagnosis Cardiac arrhythmia, unspecified cardiac arrhythmia type- Primary documented in this encounter Care Teams Principal Technologist Relationship Specialty Start Date End Date John Carr MD [address] [place] [address] PCP - General 09/05/13 documented as of this encounter Additional Source Comments The information contained in this document represents components of the legal health record. It is not the complete legal health record.[facility]
--- OUTSIDE RECORDS SUMMARY | 2024-12-06 16:26 | XMS_ITS | Encounter Summary ---
Author Organization [facility] Address [address] [facility] [address] [place] [address] Phone Care Team Providers Care Nailer Hand Name Role Phone John Carr MD Primary Care Provider [phone] Encounter Details Date Type Department Care Team (Latest Contact Info) Description 06/18/2016 Transcribe Orders [facility] [address] [place] [address], [address] [place] [address] Marissa Smith MD [address] [place] [address] [address] [place] [address] [email or web address] Cardiac arrhythmia, unspecified cardiac arrhythmia type (Primary [...] 1:20 PM EST Office Visit [facility] [address] [place] [address] Aydee Hill MD [address] [place] [phone] [email or web address] documented as of this encounter Visit Diagnoses Diagnosis Cardiac arrhythmia, unspecified cardiac arrhythmia type- Primary documented in this encounter Care Teams Nailer Hand Relationship Specialty Start Date End Date John Carr MD [address] [place] [address] PCP - General 09/05/13 documented as of this encounter Additional Source Comments The information contained in this document represents components of the legal health record. It is not the complete legal health record.[facility]
--- OUTSIDE RECORDS SUMMARY | 2024-12-06 16:26 | XMS_ITS | Clinical Summary ---
Author Organization [facility] Address [address] [place] [address] Care Team Providers Care Supervisor Drying Name Role Phone John Carr MD Primary Care Provider [phone] Allergies Active Allergy Reactions Criticality Noted Date [...] age to complete this topic Care Teams Supervisor Drying Relationship Specialty Start Date End Date John Carr MD PCP - General Internal Medicine 11/17/16
--- OUTSIDE RECORDS SUMMARY | 2024-12-06 16:26 | XMS_ITS | Clinical Summary ---
Author Organization [address] [place] [address] [place] [phone] Phone Care Team Providers Care Travel Trailer Components Assembler Name Role Phone John Carr MD Primary Care Provider + [phone] Allergies Active Allergy Reactions Criticality Noted Date [...] joint, bilateral 11/2024 Prosthetic joint implant failure ([facility] V24) 0 07/14/2024 Type 2 diabetes mellitus wit h peripheral neuropathy ([facility] V24, [facility] V28) 07/14/2024 Diabetes mellitus ([facility] V24, [facility] V28) 03/2024 LINO (dyspnea on exertion) 06/06/2024 Assessment & Plan (06/06/2024 4:39 PM EDT): As above, the patient does report worsening dyspnea on exertion which may be multifactorial in origin. She has underlying pulmonary disease and will continue to follow-up with her electric blanket packer for reevaluation. She also admits that over [...] care for further evaluation. Secondary hypercoagulable state ([facility] V24) Assessment & Plan (06/06/2024 4:39 PM EDT): First degree atrioventricular block 09/04/2022 Overview (06/06/2024): First degree atrioventricular block. Service date: 10/03/2014. Author: Marissa Smith MD. Supraventricular tachycardia ([facility] V24) 09/04 Overview (06/06/2024): Supraventricular tachycardia. Service [...] panel and CBC. 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 We discussed worrisome signs or symptoms for which she should return to care or seek urgent medical attention and she verbalizes understanding of this. We will continue to readdress this once her echo has been reviewed. Orders: Transthoracic echocardiogram (TTE) complete with PRN contrast, bubble, strain, and 3D order panel; Future Paroxysmal atrial flutter ([facility] V24, [facility] V28) 06/22/2022 Overview (06/06/2024): Last Assessment & [...] Ebstein's abnormality though the echo report from [facility] in a 2022 states that the morphology [...] HD with normal perfusion on MIBI 11/23/14. Surgical History Surgery Date Site/Laterality Comments CARPAL TUNNEL RELEASE PROCEDURE: [place] NEUROPLASTY &/TRANSPOS MEDIAN NRV CARPAL TUNNE TUBAL LIGATION PROCEDURE: HISTORICAL TUBAL LIGATION APPENDECTOMY PROCEDURE: [place] APPENDECTOMY BREAST LUMPECTOMY 02/25/2011 PROCEDURE: HISTORICAL BREAST [...] history presenting hazards to health(V15.89) Breast cancer ([facility] V24, [facility] V28) 02/2011 DX:Breast cancer ([facility]); COMM ENT: right Hypertension 09/02/2022 Family History [...] Breast Cancer Screening 1950 Colorectal Cancer Screening: Colonoscopy 1950 Diabetes: Annual GFR (Glomerular Filtration Rate) [...] 02/07/2020 12/13/2019 Cholesterol Screening (Lipid Panel) 02/14/2022 Falls Risk Assessment 02/14/2022 Hepatitis C [...] age to complete this topic Insurance MEDICARE [facility] Advance Directives Documents on File Type Date Recorded Patient Finance Director Expl anation Health Care Decision (hx) 08/17/2014 [...] (hx) 08/14/2014 AD PHAM DIRECTIVE Care Teams Travel Trailer Components Assembler Relationship Specialty Start Date End Date John Carr MD [address] [place] [address] PCP - General Internal Medicine 01/27/11
== END 2024-12-06 15:47 | disposition home or self-care (01) ==
LOC: HO.CT 15:46
PROVIDERS: PCP Internal Medicine; Visit Provider Hospitalist
DX: R91.8 Other nonspecific abnormal finding of lung field (principal)
CPT/HCPCS: 71250

== ENCOUNTER → 2024-12-06 15:47 | Outpatient (BNV) | payer MEDICARE, OTHER, SELFPAY | PROVIDERS: PCP Internal Medicine; Visit Provider Radiology Diagnostic Radiology | DX: R91.8 Other nonspecific abnormal finding of lung field (principal) | CPT/HCPCS: 71250 ==

== ENCOUNTER 2024-12-12 09:28 | Outpatient (AMB) | payer MEDICARE, OTHER, SELFPAY ==
--- NOTE | 2024-12-12 09:30 | A.OFFVIS_ITS ---
Vital Signs 12/12/24 09:31 Height 5 ft 2.5 in Weight 134 lb 7.712 oz BMI 24.2 BP 156/70 H Blood Pressure Location Lt brachial Position Sitting Pulse 55 Pulse Source Pulse Oximeter Pulse Oximetry (%) 97 Oxygen Delivery Method Room Air Intake Visit Reasons: copd Industrial Electrician Required: No Accompanied by: Self / Same As Patient Allergies Penicillins Allergy (Severe, Verified 12/12/24 09:34) Swelling nitrous oxide Adverse Reaction (Severe, Verified 12/12/24 09:34) Nausea HPI Comments Details: The patient is a 74-year-old woman with a known history of COPD and pulmonary nodules. Apparently she did undergo pulmonary function studies back in 2018 demonstrating mild obstructive ventilatory defect consistent mild COPD. Patient does have a cough tends to have a chronic cough from smoking. Denies any significant shortness of breath or limitations from a respiratory status. She did undergo CT scan of the chest back in May 2021 which we personally reviewed demonstrating some mild emphysema in addition to evidence of chronic bronchitis. She did have multiple pulmonary nodules some which were new. The nodule still are subcentimeter in size. She does have some calcified nodules as well. At this point the patient is not requiring any respiratory therapy. She may benefit from a short-acting beta agonist as needed. But, the patient would like to hold off at this time. She is currently scheduled to undergo a repeat CT scan in May 2022. in addition to that will go ahead and plan to repeat her pulmonary function studies and a follow-up in the fall. 09/05/2024 the patient is here for a new patient evaluation. She was last seen about 3 years ago. Now she is being reestablished. The patient is a 74-year-old lady with underlying COPD chronic bronchitis. Seems like her symptoms are getting worse. 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 A seems to be increasing in size. It could be also affecting her respiratory capacity. The patient has been noticing increasing chest congestion. Moderate severity. In addition to shortness of breath even with minimal activity. She does have a rescue inhaler she does not feel like she is using it right and she does not feel like it is helping. On exam she does have some rhonchi. In addition to a prolonged expiratory phase. She definitely needs a maintenance inhaler at this time. We did go for brief walking oximetry the patient did desaturate down to about 92%. Explained to the patient she does not qualify for oxygen but indeed her oxygen is dropping we need to further investigate that. I did review her chest x-ray that she had in June 2024 done at [facility]. It appears that her lungs are well expanded although she has a very large heart specially the right side consistent with a massively large right atrium. She is following up in [place] with a cardiac specialists there. Will go ahead and started on Wixela. We did teach how to use the inhaler. I also provide her with spacer in order for her to use the rescue inhaler. She is still smoking pot and she needs to quit that altogether because of her underlying lung disease. The patient also had a CT scan of the chest back in 2022 done at [facility] demonstrating a 3 mm pulmonary nodules that will need follow-up at this time. Therefore she undergo PFTs and a CT scan and follow-up in 3 months. In the meantime she will start her respiratory medications. In a nasal therapy. 12/12/2024 the patient is here for pulmonary follow-up visit. Overall the patient has been doing okay although she is complaining of a cough. Productive in nature. Moderate severity. The inhalers have not been very helpful. She has been using the Wixela although sparingly and she has not really seen any significant improvement with her rescue inhaler. She did undergo pulmonary function studies and we did review them. Appears to have a moderate obstructive ventilatory defect consistent moderate COPD. In this case in the form of chronic bronchitis. The patient also had a CT scan of the chest which we personally reviewed. She does have a goiter but she is aware of this goiter and does not appear to be causing any dynamic collapse of the trachea which is reassuring. Her airways appeared to be okay although she does have some mucus burden a minimal degree of emphysema. She has not pulmonary nodules some that are solid and some that are subsolid in nature and therefore will require follow-up. The patient does have wheezing and rhonchi on exam. She does have evidence of bronchitis. Will go ahead and continue her on the Wixela although will provide her with an Acapella valve for CPT and a mild antibiotic to help with mucus clearance. If the chest congestion is no better we can always consider therapeutic bronchoscopy to clean out the airways and also provide sputum cultures. [facility] Medical History (Updated 12/12/24 @ 10:04 by Eddy Caldwell MD) Cardiomyopathy Allergic rhinitis Pulmonary nodules Cough COPD (chronic obstructive pulmonary disease) Social History Patient Tobacco Use Status: Former Tobacco user Tobacco use type: Cigarette Years Smoked: 18 years Review of Systems Const Denies fatigue and Denies fever(s) Eyes Denies change in vision ENT Denies change in voice Card Denies chest pain and Reports dyspnea on exertion Resp Reports chest congestion, Reports cough, Reports dyspnea on exertion and Reports wheezing GI Reports no additional complaints Musc Reports no additional complaints Skin/Breast Denies rash Neuro Reports no additional complaints Endo Denies fatigue Aller/Immun Reports wheezing Physical Exam Vital Signs: Last Vital Signs Pulse 55 12/12/24 09:31 BP 156/70 H 12/12/24 09:31 Pulse Ox 97 12/12/24 09:31 Oxygen Delivery Method Room Air 12/12/24 09:31 BMI result Body Mass Index 24.2 Const General: alert Neck Neck: Yes normal visual inspection, Yes full ROM and Yes no lymphadenopathy Chest Chest palpation & inspection: normal inspection of the chest Resp Effort & Inspection: normal respiratory effort and prolonged expiratory phase Auscultation: rhonchi and diminished lung sounds Cardio Rate: regular rate Rhythm: regular rhythm Heart sounds: S1 normal heart sound present and S2 normal heart sound present GI Palpation (GI): Soft to palpation and nontender Auscultation: normal bowel sounds Skin General skin exam: rashes and/or lesions noted Assessment & Plan Assessment & Plan (1) Pulmonary nodules: Code(s): R91.8 - Other nonspecific abnormal finding of lung field Category: Medical (2) COPD (chronic obstructive pulmonary disease): Code(s): J44.9 - Chronic obstructive pulmonary disease, unspecified Category: Medical Qualifiers: COPD type: chronic bronchitis Chronic bronchitis type: mixed simple and mucopurulent Qualified Code(s): J41.8 - Mixed simple and mucopurulent chronic bronchitis (3) Cough: Code(s): R05.9 - Cough, unspecified Category: Medical Qualifiers: Cough type: chronic Qualified Code(s): R05.3 - Chronic cough (4) Cardiomyopathy: Code(s): I42.9 - Cardiomyopathy, unspecified Category: Medical Qualifiers: Cardiomyopathy type: dilated Qualified Code(s): I42.0 - Dilated cardiomyopathy Plan RASHAD as needed with a spacer Wixela daily Fluticasone nasal spray start Doxycycline F/U 4-6 months Medications: New doxycycline monohydrate 100 mg PO BID 28 tabs 0RF 14 days Coding Level of Care Code Est Pt Level 4 (62486) Complex EM visit Add On G2211 Diagnoses Pulmonary nodules R91.8 Mixed simple and mucopurulent chronic bronchitis J41.8 COPD type: chronic bronchitis Chronic bronchitis type: mixed simple and mucopurulent Chronic cough R05.3 Cough type: chronic Dilated cardiomyopathy I42.0 Cardiomyopathy type: dilated Time Spent (min) 17
[2024-12-12 09:31] VITALS: BP 156/70; PULSE 55; O2SAT 97; BMI 24.2
--- OUTSIDE RECORDS SUMMARY | 2024-12-12 10:40 | XMS_ITS | Patient Health Record ---
Author Organization [employer] Address [address] [facility] [address] [place] [address] Support Name Relationship Address Phone Disha Ibarra Guarantor Unknown [phone] Allergies Allergen (clinical drug ingredient) Drug/Non Drug [...]
--- OUTSIDE RECORDS SUMMARY | 2024-12-12 10:40 | XMS_ITS | Clinical Summary ---
Author Organization [address] [place] [address] [place] [phone] Phone Care Team Providers Care Clarifying Plant Operator Name Role Phone John Carr MD Primary Care Provider + [phone] Allergies Active Allergy Reactions Criticality Noted Date [...] joint, bilateral 11/2024 Prosthetic joint implant failure ([facility] V24) 0 07/14/2024 Type 2 diabetes mellitus wit h peripheral neuropathy ([facility] V24, [facility] V28) 07/14/2024 Diabetes mellitus ([facility] V24, [facility] V28) 03/2024 LINO (dyspnea on exertion) 06/06/2024 Assessment & Plan (06/06/2024 4:39 PM EDT): As above, the patient does report worsening dyspnea on exertion which may be multifactorial in origin. She has underlying pulmonary disease and will continue to follow-up with her chicken tender for reevaluation. She also admits that over [...] care for further evaluation. Secondary hypercoagulable state ([facility] V24) Assessment & Plan (06/06/2024 4:39 PM EDT): First degree atrioventricular block 09/04/2022 Overview (06/06/2024): First degree atrioventricular block. Service date: 10/03/2014. Author: Marissa Smith MD. Supraventricular tachycardia ([facility] V24) 09/04 Overview (06/06/2024): Supraventricular tachycardia. Service [...] panel and CBC. 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 We discussed worrisome signs or symptoms for which she should return to care or seek urgent medical attention and she verbalizes understanding of this. We will continue to readdress this once her echo has been reviewed. Orders: Transthoracic echocardiogram (TTE) complete with PRN contrast, bubble, strain, and 3D order panel; Future Paroxysmal atrial flutter ([facility] V24, [facility] V28) 06/22/2022 Overview (06/06/2024): Last Assessment & [...] Ebstein's abnormality though the echo report from [facility] in a 2022 states that the morphology [...] Date Site/Laterality Comments CARPAL TUNNEL RELEASE PROCEDURE: [place] NEUROPLASTY &/TRANSPOS MEDIAN NRV CARPAL TUNNE TUBAL LIGATION PROCEDURE: HISTORICAL TUBAL LIGATION APPENDECTOMY PROCEDURE: [place] APPENDECTOMY BREAST LUMPECTOMY 02/25/2011 PROCEDURE: HISTORICAL BREAST [...] history presenting hazards to health(V15.89) Breast cancer ([facility] V24, [facility] V28) 02/2011 DX:Breast cancer ([facility]); COMM ENT: right Hypertension 09/02/2022 Family History [...] age to complete this topic Insurance MEDICARE [facility] Advance Directives Documents on File Type Date Recorded 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
--- OUTSIDE RECORDS SUMMARY | 2024-12-12 10:40 | XMS_ITS | Encounter Summary ---
Author Organization [facility] Address [address] [address] [place] [address] Phone Care Team Providers Care Microeconomics Professor Name Role Phone John Carr MD Primary Care Provider [phone] Encounter Details Date Type Department Care Team (Latest Contact Info) Description 06/18/2016 Transcribe Orders [facility] Cardiology Division [address] [place] [address], [address] [place] [address] Marissa Smith MD [address] [place] [address] [address] [place] [address] [email or web address] Cardiac arrhythmia, unspecified cardiac arrhythmia type (Primary [...] 1:20 PM EST Office Visit [facility] [address] [place] [phone] Aydee Hill MD [address] [place] [phone] [email or web address] documented as of this encounter Visit Diagnoses Diagnosis Cardiac arrhythmia, unspecified cardiac arrhythmia type- Primary documented in this encounter Care Teams Microeconomics Professor Relationship Specialty Start Date End Date John Carr MD [address] [place] [address] PCP - General 09/05/13 documented as of this encounter Additional Source Comments The information contained in this document represents components of the legal health record. It is not the complete legal health record.[facility]
--- OUTSIDE RECORDS SUMMARY | 2024-12-12 10:40 | XMS_ITS | Encounter Summary ---
Author Organization [facility] Address [address] [place] [address] Phone Care Team Providers Care Calendar Control Clerk Blood Bank Name Role Phone John Carr MD Primary Care Provider [phone] Encounter Details Date Type Department Care Team (Latest Contact Info) Description 2015 Transcribe Orders [facility] Cardiology Division [address] [place] [address], [address] [place] [address] Marissa Smith MD [address] [place], [place] [address] [place] [address] [email or web address] Cardiac arrhythmia, unspecified cardiac arrhythmia [...] 1:20 PM EST Office Visit [facility] [address] [place] [phone] Aydee Hill MD [address] [place] [phone] [email or web address] Scheduled Orders Name Type Priority Associated Diagnoses Orde r Schedule ECG 12 lead ECG Routine Cardiac arrhythmia, unspecified cardiac arrhythmia type Expected: 2015, Expires: 08/01/2016 documented as of this encounter Visit Diagnoses Diagnosis Cardiac arrhythmia, unspecified cardiac arrhythmia type- Primary documented in this encounter Care Teams Calendar Control Clerk Blood Bank Relationship Specialty Start Date End Date John Carr MD [address] [place] [address] PCP - General 09/05/13 documented as of this encounter Additional Source Comments The information contained in this document represents components of the legal health record. It is not the complete legal health record.[facility]
--- OUTSIDE RECORDS SUMMARY | 2024-12-12 10:40 | XMS_ITS | Clinical Summary ---
Author Organization [facility] Address [address] [place] [address] Phone Care Team Providers Care Design Lead Name Role Phone John Carr MD Primary Care Provider John Carr MD Unavailable [phone] John Carr MD Unavailable Héctor Hightower MD Unavailable Allergies Active Allergy Reactions Criticality Noted Date Comments Nitrous Oxide Nausea 08/25/2024 Penicillins Itching,Swelling 08/25/2024 Encounters Date Type Department Care Team Description 12/05/2024 4:34 PM EDT - 12/05/2024 11:59 PM EDT Hospital Encounter [address] Cardiac MRI [address] [place] [id number] Nisa Blackmon MD Right atrial dilation Discharge Disposition: Home 12/05/2024 Travel from Last 3 Months Social History Tobacco Use Types Packs/Day Years Used Date Smoking Tobacco: Never Assessed Comments Unknown Sex and Gender Information Value Date Recorded Sex Assigned at Not on file Legal Sex Female 3:01 AM EDT Gender Identity Not on file Sexual Orientation Not on file Last Filed Vital Signs Vital Sign Reading Time Taken Comments Blood Pressure 107/70 12/05/2024 4:58 PM EDT Pulse 58 12/05/2024 4:58 PM EDT Temperature - - Respiratory Rate - - Oxygen Saturation 97% 12/05/2024 4:58 PM EDT Inhaled Oxygen Concentration - - Weight 59.5 kg (131 lb 2.8 oz) 12/05/2024 4:55 P M EDT Height 151 cm (4' 11.45 ) 12/05/2024 4:55 PM EDT Body Mass Index 26.1 12/05/2024 4:55 PM EDT Plan of Treatment Health Maintenance Due Date Last Done Comments Chlamydia and Gonorrhea Screening 1950 HIV Screening 1950 MMR Vaccines (1 of 1 - Standard series) 1953 DTaP/Tdap/Td Vaccines (1 - Tdap) 08/03/1959 Anemia Screening 1964 Varicella Vaccines (1 of 2 - 13+ [...] Procedure Name Priority Date/Time Associated Diagnosis Comments MR CARDIAC IN CARDIOLOGY Routine 12/05/2024 6:03 PM EDT Right atrial dilation from Last 3 Months Results * MR Cardiac In Cardiology (12/05/2024 6:03 PM EDT) Anatomical Region Laterality Modality Heart Magnetic Resonan ce 12/05/2024 5:00 PM EDT Impressions 12/12/2024 8:32 AM EDT - Giant right atrium, slightly increased in volume compared to prior study. - As previously described, the tricuspid valve annulus and the right ventricle are displaced leftward by the giant right atrium. - Moderately dilated tricuspid valve annulus. Mild tricuspid regurgitation, stable. - Normal pulmonary valve function. - Normal-sized main pulmonary artery. Moderately dilated branch pulmonary arteries, stable. - Mildly dilated right ventricle (likely mildly increased in volume) with normal global systolic function. Please note that some degree of measurement error may exist due to difficult delineation of the tricuspid valve annulus plane. - Normal mitral and aortic valve function. - Normal-sized aortic root. Mildly dilated ascending and descending aorta, stable. 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 - Normal left ventricular size and systolic function. - No pericardial or pleural effusion. Narrative Procedure Note Nisa Blackmon MD - 12/12/2024 IMPRESSION - Giant right atrium, slightly increased in volume compared to priorstudy. - As previously described, the tricuspid valve annulus and the rightventricle are displaced leftward by the giant right atrium. - Moderately dilated tricuspid valve annulus. Mild tricuspidregurgitation, stable. - Normal pulmonary valve function. - Normal-sized main pulmonary artery. Moderately dilated branch pulmonaryarteries, stable. - Mildly dilated right ventricle (likely mildly increased in volume) withnormal global systolic function. Please note that some degree ofmeasurement error may exist due to difficult delineation of the tricuspidvalve annulus plane. - Normal mitral and aortic valve function. - Normal-sized aortic root. Mildly dilated ascending and descending aorta,stable. 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 - Normal left ventricular size and systolic function. - No pericardial or pleural effusion. us Héctor Hightower MD CV MRI PROCEDURES Final Resul t from Last 3 Months Insurance [facility] Care Teams Design Lead Relationship Specialty Start Date End Date John Carr MD [address] [place] [address] PCP - General 04/17/19 John Carr MD [address] [place] [address] PCP - Insurance PCP 05/24/19 John Carr MD [address] [place] [address] PCP - Clinical PCP 04/17/19 Héctor Hightower MD [address] [place] [address] Software Testing Specialist 08/07/23
--- OUTSIDE RECORDS SUMMARY | 2024-12-12 10:41 | XMS_ITS | Encounter Summary ---
Author Organization [facility] Address [address] [place] [address] Phone Care Team Providers Care Occupational Health Nurse Manager Name Role Phone John Carr MD Primary Care Provider [phone] Reason for Visit * Reason Comments Medication Refill Encounter Details Date Type Department Care Team (Late Contact Info) Description 08/21/2018 Refill [facility] Cardiology Division [address] [place] [address], [address] [place] [address] Leo Rivas NP Medication Refill Social History [...] 1:20 PM EST Office Visit [facility] [address] [place] [phone] Aydee Hill MD [address] [place] [phone] [email or web address] documented as of this encounter Visit Diagnoses Diagnosis Atrial flutter documented in this encounter Care Teams Occupational Health Nurse Manager Relationship Specialty Start Date End Date John Carr MD [address] [place] [phone] PCP - General 09/05/13 documented as of this encounter Additional Source Comments The information contained in this document represents components of the legal health record. It is not the complete legal health record.[facility]
--- OUTSIDE RECORDS SUMMARY | 2024-12-12 10:41 | XMS_ITS | Clinical Summary ---
Author Organization [facility] Address [address] [place] [phone] Phone Care Team Providers Care Informatica Developer Name Role Phone John Carr MD Primary Care Provider [phone] Allergies Active Allergy Reactions Criticality Noted Date [...] 5 Active sodium bicarbonate 650 MG tablet TAKE 1/2 TABLET(325 MG) BY MOUTH IN THE MORNING AND IN THE EVENING 90 tablet 5 Active sodium bicarbonate 650 MG tablet Take 1 tablet (650 mg total) by mouth in the morning and 1 tablet (650 mg total) in the evening. 180 tablet 1 5 05/07/19 26 Active Active Problems Problem Noted Date Diagnosed Date Stage 3a chronic kidney disease 07/11/2024 Type 2 diabetes mellitus wit h diabetic chronic kidney disease 07/11/2024 Hyperkalemia 07/11/2024 Encounters Date Type Department Care Team Description 11/07/2024 Office Communication [facility] [id number] [phone] Salomón Johnson 11/06/2024 Refill [facility] [address] [phone] Jorge A Lopez MD 10/30/2024 Refill [facility] [address] [phone] Cuong Vázquez from Last 3 Months Family History Medical History Relation Comments Stroke Father Diabetes Mother type 2 Heart disease Mother [place] Heart disease Sibling 1 brother Stroke Sibling [...] Office Visit [facility] [address] [phone] Eugenia Mann ARNP [facility] [address] [phone] Health Maintenance Due Date Last [...] complete this topic Insurance Medicare [facility] Care Teams Informatica Developer Relationship Specialty Start Date End Date John Carr MD [address] [place] [phone] PCP - General Internal Medicine 06/15/24
--- OUTSIDE RECORDS SUMMARY | 2024-12-12 10:41 | XMS_ITS | Clinical Summary ---
Author Organization [facility] Address [address] [place] [address] Care Team Providers Care Infant And Toddler Teacher Name Role Phone John Carr MD Primary Care Provider [phone] Allergies Active Allergy Reactions Criticality Noted Date [...] age to complete this topic Care Teams Infant And Toddler Teacher Relationship Specialty Start Date End Date John Carr MD PCP - General Internal Medicine 11/17/16
--- OUTSIDE RECORDS SUMMARY | 2024-12-12 10:41 | XMS_ITS | Clinical Summary ---
Author Organization [facility] Address [address] [address] Phone Care Team Providers Care Professor Of Practice Name Role Phone John Carr MD Primary Care Provider [phone] Allergies Active Allergy Reactions Criticality Noted Date [...] with glycemic control. Up to date with [employer] up to date, normal. Assessment & Plan [...] with glycemic control. Up to date with Antriaalb/creat up to date, normal. Foot & nail [...] with glycemic control. Up to date with Antriaalb/creat up to date, normal. Assessment & Plan (09/21/2023 12:55 PM EDT): Control has been good. OK to trial d/c metformin & see how BG do given loose bowels. Continue to work on eating healthy & keeping active. To call or send in BG with problems with glycemic control. Up to date with Antriaalb/creat up to date, normal. Assessment & Plan [...] Description 10/02/2024 3:40 PM EDT Office Visit [facility] [address] [phone] Aydee Hill MD Type 2 diabetes mellitus with peripheral neuropathy (Primary Dx); Multinodular goiter; Abnormal serum creatinine level 09/28/2024 Orders Only [facility] [address] [place] [address] [place] [address] Umu Delarosa [place] Type 2 diabetes mellitus with peripheral neuropathy 09/25/2024 Orders Only [facility] [address] [place] [address] [place] [address] Umu Delarosa [place] Type 2 diabetes mellitus [...] 1:20 PM EST Office Visit [facility] [address] [place] [address] [place] [address] Aydee Hill MD [address] [place] [phone] [email or web address] Health Maintenance Due Date Last Done [...] ORDERABLES F inal Result Performing Organization Address [facility] de Phone Number [address] [address] * Aspartate aminotransferase (AST) (09/22/2024 1:58 PM EDT) Blood Aydee Hill MD LAB BLOOD ORDERABLES F inal Result Performing Organization Address [facility] de Phone Number [address] [address] * Basic metabolic panel (09/22/2024 1:58 PM EDT) Blood Aydee Hill MD LAB BLOOD ORDERABLES F inal Result Performing Organization Address [facility] Co de Phone Number [address] [address] * Alanine aminotransferase (ALT) (09/22/2024 1:57 PM EDT) Blood Aydee Hill MD LAB BLOOD ORDERABLES F inal Result Performing Organization Address [facility] Co de Phone Number [address] [phone] from Last 3 Months or Most Recently Relevant to Health Maintenance Insurance MEDICARE PART A & B [employer] MEDICARE SUPPLEMENT MEDICARE PART A & B [employer] [facility] [employer] MEDICARE SUPPLEMENT MEDICARE PART A & B [facility] MEDIC[facility] SUPPLEMENT MEDICARE PART A & B [facility] [employer] MEDICARE SUPPLEMENT MEDICARE PART A & B [facility] [employer] MEDICARE SUPPLEMENT MEDICARE PART A & B [facility] EX[employer]ION MEDICARE SUPPLEMENT Care Teams Professor Of Practice Relationship Specialty Start Date End Date John Carr MD [address] [place] [id number] PCP - General 09/05/13 Additional Source Comments The information contained in this document represents components of the legal health record. It is not the complete legal health record.[facility]
== END 2024-12-12 10:15 | disposition home or self-care (01) ==
PROVIDERS: PCP Internal Medicine; Visit Provider Hospitalist
DX: R91.8 Other nonspecific abnormal finding of lung field (principal); J41.8 Mixed simple and mucopurulent chronic bronchitis; R05.3 Chronic cough; I42.0 Dilated cardiomyopathy
CPT/HCPCS: 99214; G2211

== ENCOUNTER → 2024-12-12 09:28 | Outpatient (BNVA) | payer MEDICARE, OTHER, SELFPAY | PROVIDERS: PCP Internal Medicine; Visit Provider Hospitalist | DX: J41.8 Mixed simple and mucopurulent chronic bronchitis (principal); R91.8 Other nonspecific abnormal finding of lung field; R05.3 Chronic cough; I42.0 Dilated cardiomyopathy; Z87.891 Personal history of nicotine dependence | CPT/HCPCS: 99212 ==